=== PATIENT | female | born 1965 | race Caucasian/White ===

== ENCOUNTER 2020-03-04 11:23 | Outpatient (REF) | payer OTHER, SELFPAY ==
[2020-03-04 11:53] LABS: COVID-19 Test Negative (Negative)
== END 2020-03-04 11:24 | disposition home or self-care (01) ==
LOC: HO.LAB 11:23
PROVIDERS: Visit Provider Internal Medicine
DX: Z20.822 Contact with and (suspected) exposure to COVID-19 (principal)
CPT/HCPCS: 36415; 87635; C9803

== ENCOUNTER 2021-01-06 13:23 | Emergency (ER) | payer BC, SELFPAY ==
--- NOTE | 2021-01-06 | ECG_ITS ---
Test Reason : CHEST PAIN Blood Pressure : / mmHG Vent. Rate : 080 BPM Atrial Rate : 080 BPM P-R Int : 132 ms QRS Dur : 084 ms QT Int : 386 ms P-R-T Axes : 014 000 019 degrees QTc Int : 445 ms Normal sinus rhythm T-wave inversion in Anteroseptal leads Poor R wave progression Left axis deviation Abnormal ECG No previous ECGs available Referred By: Generic ED Physician Electronically Signed By:TAMMY RAMOS MD
[2021-01-06 13:28] VITALS: BP 146/97; PULSE 98; RESP 18; TEMP 36.8; O2SAT 99; BMI 28.3
--- NOTE | 2021-01-06 14:45 | ED.CHESTPAIN ---
HPI - Chest Pain General Chief Complaint: Chest Pain Stated Complaint: chest & upper back pain Time Seen by Provider: 01/06/21 14:31 Source: patient and other (Records obtained from [facility]) History of Present Illness HPI narrative: Patient states for the past 4 weeks she has had right-sided chest pain. Over the last few weeks it started radiating to her back. Worse with certain types of movement. No recent illness. No cough or fevers or chills. No nausea. No left-sided or substernal chest discomfort. No dyspnea on exertion. No history of chest pain prior to this No other medical problems such as hypertension or diabetes. She came to the emergency department today at the behest of her coworkers since the pain is not improving. She did have a workup by her PCP which included blood work, EKG, CT scan of the chest without IV contrast. Apparently the workup was negative. She is due for an MRI of the spine to help workup pain from her PCP office but so far it has not happened. Risk factors are high cholesterol. Nonsmoker. family history of early cardiovascular disease Related Data Previous Rx's Medication Instructions Recorded cyclobenzaprine 10 mg tablet 10 mg PO TID #20 tab 01/06/21 ibuprofen 800 mg tablet 800 mg PO TID #30 tab 01/06/21 Allergies Allergy/AdvReac Type Severity Reaction Status Date / Time No Known Allergies Allergy Verified 01/06/21 13:28 Review of Systems Constitutional: Comments: No fevers or chills ENT: Comments: No jaw pain Cardiovascular: Comments: Chest pain is described Respiratory: Comments: No dyspnea or cough. Gastrointestinal: Comments: No nausea vomiting or upper abdominal discomfort Musculoskeletal: Comments: No specific neck or back pain Integumentary/Breasts: Comments: No rash or history of shingles Neurologic: Comments: No weakness numbness or paresthesias PMFSH Past Medical History Medical History (Updated 01/06/21 @ 15:45 by Lucio Valentine MD) Migraines Surgical History (Updated 01/06/21 @ 13:29 by Arielle Corcoran RN) H/O bilateral breast reduction surgery Social History Social History Smoked in Last 30 Days: No Use of substances other than those prescribed or required for medical reasons: No Advance Directives: No Advance Directives Information Provided: Yes Patient : No Physical Exam Vital Signs: Vital Signs: Last Vital Signs Temp 98.2 F 01/06/21 15:15 Pulse 75 01/06/21 15:15 Resp 16 01/06/21 15:15 BP 147/87 H 01/06/21 15:15 Pulse Ox 98 01/06/21 15:15 Body Mass Index 28.3 Const: Other: Awake alert no acute distress Chest: Other: Chest wall nontender. No rash noted an area of discomfort Resp: Other: Clear and equal bilaterally without wheezes rales or rhonchi. Good air entry GI: Other: Soft nontender nondistended with normoactive bowel sounds. No Gold sign Back/Spine/Pelvis: Other: Nontender Skin: Other: No rash Course Course Course Narrative: Musculoskeletal chest wall pain Pulmonary embolism Pneumonia Workup in the emergency department is reassuring. Labs are normal including troponin and D-dimer. Pain is most consistent with a musculoskeletal origin. Stable for discharge home MDM - Chest Pain Lab Data Result diagrams: 01/06/21 14:50 01/06/21 14:49 Labs: Lab Results 01/06/21 01/06/21 01/06/21 Range/Units 14:49 14:50 14:50 WBC 8.8 (4.8-10.8) X10*3/uL RBC 4.12 L (4.20-5.50) X10*6/uL Hgb 13.8 (12.0-16.0) g/dl Hct 40.1 (37.0-47.0) % MCV 97.3 (80.0-98.0) fL MCH 33.5 H (27.0-33.0) pg MCHC 34.4 (31.0-35.0) g/dl RDW 11.9 (11.0-16.0) % Plt Count 169 (160-400) X10*3/uL MPV 10.1 (9.4-12.3) fL Immature Gran % (Auto) 0.6 H (0.0-0.4) % Neut % (Auto) 67.7 (45-73) % Lymph % (Auto) 24.7 (20-40) % Winston % (Auto) 5.4 (2-11) % Eos % (Auto) 1.3 (0-4) % Baso % (Auto) 0.3 (0-2) % Lymph # (Auto) 2.2 (1.2-4.9) X10*3/uL Winston # (Auto) 0.5 (0.1-1.2) X10*3/uL Eos # (Auto) 0.1 (0.0-0.4) X10*3/uL Baso # (Auto) 0.0 (0.0-0.2) X10*3/uL Abs Immat Gran (auto) 0.05 H (0.00-0.03) X10*3/uL Absolute Neuts (auto) 5.9 (2.0-8.3) x10*3/uL Absolute Nucleated RBC 0.000 (0.0-0.012) X10*3/uL Nucleated RBC % (auto) 0.0 (0.0-0.2) /100WBC D-Dimer < 200 NG/ML Sodium 139 (135-145) mmol/L Potassium 3.8 (3.3-5.1) mmol/L Chloride 104 (96-108) mmol/L Carbon Dioxide 28 (22-29) mmol/L Anion Gap 11 L (12-20) BUN 12 (9-16) mg/dL Creatinine 0.89 (0.5-1.4) mg/dL Estim Creat Clear Calc 75.1 Estimated GFR > 60 Random Glucose 100 (60-115) mg/dL Calcium 9.3 (8.4-10.2) mg/dL Total Bilirubin 0.9 (0.0-1.0) mg/dL AST 35 H (5-31) U/L ALT 55 H (0-31) U/L Alkaline Phosphatase 65 (39-117) U/L Troponin I High Sens (<3.5-17.0) ng/L Total Protein 6.9 (6.5-8.0) g/dL Albumin 4.2 (3.5-5.0) g/dL 01/06/21 Range/Units 14:50 WBC (4.8-10.8) X10*3/uL RBC (4.20-5.50) X10*6/uL Hgb (12.0-16.0) g/dl Hct (37.0-47.0) % MCV (80.0-98.0) fL MCH (27.0-33.0) pg MCHC (31.0-35.0) g/dl RDW (11.0-16.0) % Plt Count (160-400) X10*3/uL MPV (9.4-12.3) fL Immature Gran % (Auto) (0.0-0.4) % Neut % (Auto) (45-73) % Lymph % (Auto) (20-40) % Winston % (Auto) (2-11) % Eos % (Auto) (0-4) % Baso % (Auto) (0-2) % Lymph # (Auto) (1.2-4.9) X10*3/uL Winston # (Auto) (0.1-1.2) X10*3/uL Eos # (Auto) (0.0-0.4) X10*3/uL Baso # (Auto) (0.0-0.2) X10*3/uL Abs Immat Gran (auto) (0.00-0.03) X10*3/uL Absolute Neuts (auto) (2.0-8.3) x10*3/uL Absolute Nucleated RBC (0.0-0.012) X10*3/uL Nucleated RBC % (auto) (0.0-0.2) /100WBC D-Dimer NG/ML Sodium (135-145) mmol/L Potassium (3.3-5.1) mmol/L Chloride (96-108) mmol/L Carbon Dioxide (22-29) mmol/L Anion Gap (12-20) BUN (9-16) mg/dL Creatinine (0.5-1.4) mg/dL Estim Creat Clear Calc Estimated GFR Random Glucose (60-115) mg/dL Calcium (8.4-10.2) mg/dL Total Bilirubin (0.0-1.0) mg/dL AST (5-31) U/L ALT (0-31) U/L Alkaline Phosphatase (39-117) U/L Troponin I High Sens < 3.5 (<3.5-17.0) ng/L Total Protein (6.5-8.0) g/dL Albumin (3.5-5.0) g/dL Discharge Plan Discharge Clinical Impression: Chest pain Patient Disposition: Home, Self-Care Instructions: Chest Wall Pain (ED) Additional Instructions: Be sure to follow-up with binder spine and support Prescriptions: New cyclobenzaprine 10 mg tablet 10 mg PO TID Qty: 20 RF: 0 ibuprofen 800 mg tablet 800 mg PO TID Qty: 30 RF: 0 Referrals: AMANDA BENNETT [Physician] - 2 days
[2021-01-06] MEDS: Ketorolac Tromethamine 15 MG/ML VIAL 30 MG IVPUSH (14:55)
[2021-01-06 14:56] LABS: MANUAL DIFF FLAG NO
[2021-01-06 14:59] LABS: Basophils Percent Auto 0.3 % (0-2); Eosinophils Absolute Auto 0.1 X10*3/uL (0.0-0.4); Eosinophils Percent Auto 1.3 % (0-4); Hematocrit 40.1 % (37.0-47.0); Hemoglobin 13.8 g/dl (12.0-16.0); Imm Gran Abs Auto 0.05 X10*3/uL (0.00-0.03); Imm Gran Pct Auto 0.6 % (0.0-0.4); Lymphocytes Absolute Auto 2.2 X10*3/uL (1.2-4.9); Lymphocytes Percent Auto 24.7 % (20-40); Mean Corpuscular HGB Conc 34.4 g/dl (31.0-35.0); Mean Corpuscular Hemoglobin 33.5 pg (27.0-33.0); Mean Corpuscular Volume 97.3 fL (80.0-98.0); Mean Platelet Volume 10.1 fL (9.4-12.3); Monocytes Absolute Auto 0.5 X10*3/uL (0.1-1.2); Monocytes Percent Auto 5.4 % (2-11); Neutrophils Absolute Auto 5.9 x10*3/uL (2.0-8.3); Neutrophils Percent Auto 67.7 % (45-73); Platelet Count 169 X10*3/uL (160-400); Red Blood Count 4.12 X10*6/uL (4.20-5.50); Red Cell Distribution Width 11.9 % (11.0-16.0); White Blood Count 8.8 X10*3/uL (4.8-10.8)
[2021-01-06 15:08] LABS: D Dimer < 200 NG/ML
[2021-01-06 15:15] VITALS: BP 147/87; PULSE 75; RESP 16; TEMP 36.8; O2SAT 98
[2021-01-06 15:17] LABS: Alanine Aminotransferase 55 U/L (0-31); Albumin Level 4.2 g/dL (3.5-5.0); Alkaline Phosphatase 65 U/L (39-117); Anion Gap 11 (12-20); Aspartate Amino Transferase 35 U/L (5-31); Bilirubin Total 0.9 mg/dL (0.0-1.0); Blood Urea Nitrogen 12 mg/dL (9-16); Calcium 9.3 mg/dL (8.4-10.2); Carbon Dioxide 28 mmol/L (22-29); Chloride 104 mmol/L (96-108); Creatinine Clr Calc Pharmacy 75.1; Estimated Glomerular Filt Rate > 60; Glucose Random 100 mg/dL (60-115); Potassium 3.8 mmol/L (3.3-5.1); Sodium 139 mmol/L (135-145); Total Protein 6.9 g/dL (6.5-8.0)
[2021-01-06 15:22] LABS: Troponin-I High Sensitivity < 3.5 ng/L (<3.5-17.0)
== END 2021-01-06 15:55 | disposition home or self-care (01) ==
PROVIDERS: Emergency Provider Emergency Medicine; PCP Internal Medicine
DX: R07.9 Chest pain, unspecified (principal)
CPT/HCPCS: 36415; 80053; 84484; 85025; 85379; 93005; 96374; 99284; 99285; J1885

== ENCOUNTER 2021-12-15 12:00 | Outpatient (RCR) | payer BC, SELFPAY | END 2022-02-03 10:56 | disposition home or self-care (01) | LOC: HO.PT 12:00 | PROVIDERS: PCP Internal Medicine; Visit Provider Midwife | DX: N39.3 Stress incontinence (female) (male) (principal) | CPT/HCPCS: 97110; 97112; 97140; 97162 ==

== ENCOUNTER 2024-05-11 10:23 | Outpatient (REF) | payer BC, SELFPAY ==
[2024-05-11 11:26] LABS: MANUAL DIFF FLAG NO
[2024-05-11 12:03] LABS: Basophils Percent Auto 0.4 % (0-2); Eosinophils Percent Auto 0.6 % (0-4); Hematocrit 40.6 % (37.0-47.0); Hemoglobin 14.1 g/dl (12.0-16.0); Imm Gran Abs Auto 0.02 X10*3/uL (0.00-0.03); Imm Gran Pct Auto 0.4 % (0.0-0.4); Lymphocytes Absolute Auto 1.8 X10*3/uL (1.2-4.9); Lymphocytes Percent Auto 35.4 % (20-40); Mean Corpuscular HGB Conc 34.7 g/dl (31.0-35.0); Mean Corpuscular Volume 95.1 fL (80.0-98.0); Mean Platelet Volume 9.9 fL (9.4-12.3); Monocytes Absolute Auto 0.3 X10*3/uL (0.1-1.2); Monocytes Percent Auto 6.1 % (2-11); Neutrophils Absolute Auto 2.9 x10*3/uL (2.0-8.3); Neutrophils Percent Auto 57.1 % (45-73); Platelet Count 190 X10*3/uL (160-400); Red Blood Count 4.27 X10*6/uL (4.20-5.50); Red Cell Distribution Width 12.2 % (11.0-16.0); White Blood Count 5.1 X10*3/uL (4.8-10.8)
[2024-05-11 12:21] LABS: D Dimer High Sensitivity < 150 NG/ML
[2024-05-11 12:26] LABS: Anion Gap 11 (12-20); Blood Urea Nitrogen 19 mg/dL (9-16); Calcium 9.6 mg/dL (8.4-10.2); Carbon Dioxide 27 mmol/L (22-29); Chloride 107 mmol/L (96-108); Estimated Glomerular Filt Rate > 60; Glucose Random 80 mg/dL (60-115); Sodium 141 mmol/L (135-145)
[2024-05-11 12:55] LABS: Erythrocyte Sedimentation Rate 11 MM/HR (0-20)
[2024-05-12 20:04] LABS: Immunoglobulin E 79 kU/L (<OR=114)
[2024-05-15 11:04] LABS: Anti Nuclear Antibody Screen NEGATIVE (NEGATIVE)
[2024-05-15 13:38] LABS: Cyclic Citrullinated Peptide <16 UNITS
== END 2024-05-11 10:24 | disposition home or self-care (01) ==
LOC: HO.LAB 10:23
PROVIDERS: PCP Internal Medicine; Referring Provider Otolaryngology; Visit Provider Hospitalist
DX: R07.81 Pleurodynia (principal); R06.00 Dyspnea, unspecified; R05.2 Subacute cough; U09.9 Post COVID-19 condition, unspecified
CPT/HCPCS: 36415; 80048; 82785; 85025; 85379; 85652; 86038; 86200

== ENCOUNTER 2024-05-11 10:23 | Outpatient (AMB) | payer BC, SELFPAY ==
[2024-05-11 10:25] VITALS: BP 130/88; PULSE 60; O2SAT 98; BMI 28.8
--- NOTE | 2024-05-11 10:25 | MHC.OFFVIS ---
Vital Signs 05/11/24 10:25 Height 5 ft 5 in Weight 173 lb 1.006 oz BMI 28.8 BP 130/88 Blood Pressure Location Rt brachial Position Sitting Pulse 60 Pulse Source Pulse Oximeter Pulse Oximetry (%) 98 Oxygen Delivery Method Room Air Intake Visit Reasons: Shortness of Breath/Cough Allergies No Known Allergies Allergy (Verified 05/11/24 10:31) HPI Comments Details: The patient is here for pulmonary evaluation. The patient is a 58 year woman presenting with worsening cough and shortness of breath. Apparently she was in her usual state health until back in February when she started developing cough and shortness breath and chest tightness. She did have a COVID test that was positive. However, her symptoms persisted. Continued to have cough. She went to urgent care where she was just provided supportive care. Although her cough persisted moderate severity difficulty sleeping along with some chest heaviness and she went back to the urgent care. Then she had an x-ray. I do not have access to the x-ray but per report she was told that it was okay. She was not provide any medications at that point. The patient then took a trip to [place] where it was hot and humid and she had a hard time with the breathing. She states that she has struggled to breathe. Sometimes she would go into the shower just to try to break up some phlegm and see if he can clear whatever was obstructing her airways. She struggled and she did not want to get care there so she came back to the [facility]. The patient now has been starting to feel better although she does complains of some left-sided back and upper quadrant pain. To some degree is pleuritic in nature. Feels like somebody is punching her in that area. She did see GI for that. She was diagnosed with diverticulosis or diverticulitis. She is going to have a CT scan this Wednesday. In the meantime heart rates have been stable. Denies any history of blood clots. Denies any swelling of her legs. We did go for brief walking oximetry in her oxygen was stable at 98% and heart rate did increase to the low 100s. Therefore will have her undergo blood work including a D-dimer to make sure that she did not have a thromboembolic event and also will check inflammatory marker for anything that could have potentially become activated by the inflammation from the COVID infection. The patient will return to 3 months and undergo pulmonary function studies. 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 Dyspnea Pleuritic chest pain Migraines Surgical History (Updated 01/06/21 @ 13:29 by Arielle Corcoran RN) H/O bilateral breast reduction surgery Social History (Updated 05/11/24 @ 10:31 by Brooklyn Medina CMA) Patient Tobacco Use Status: Never used Tobacco Review of Systems Const Denies fever(s) Eyes Reports no additional complaints ENT Denies nasal congestion Card Reports chest pain and Reports dyspnea on exertion Resp Reports cough, Reports pain on inspiration, Reports dyspnea on exertion and Denies wheezing GI Reports abdominal pain Musc Reports no additional complaints Skin/Breast Denies rash Edison/Lymph Reports no additional complaints Aller/Immun Denies wheezing Physical Exam Vital Signs: Last Vital Signs Pulse 60 05/11/24 10:25 BP 130/88 05/11/24 10:25 Pulse Ox 98 05/11/24 10:25 Oxygen Delivery Method Room Air 05/11/24 10:25 BMI result Body Mass Index 28.8 Const General: comfortable HEENT Head: Yes normocephalic Neck Neck: Yes supple Chest Chest palpation & inspection: tenderness rib (left) Resp Effort & Inspection: normal respiratory effort Auscultation: clear to auscultation bilaterally Cardio Heart sounds: S1 normal heart sound present and S2 normal heart sound present GI Palpation (GI): Soft to palpation Skin General skin exam: no rashes or lesions noted Extrem General: Yes no clubbing, cyanosis or edema Assessment & Plan Assessment & Plan (1) Pleuritic chest pain: Code(s): R07.81 - Pleurodynia Category: Medical (2) Dyspnea: Code(s): R06.00 - Dyspnea, unspecified Category: Medical Qualifiers: Dyspnea type: dyspnea on exertion Qualified Code(s): R06.09 - Other forms of dyspnea (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, unspecified Category: Medical (4) Cough: Code(s): R05.9 - Cough, unspecified Category: Medical Qualifiers: Cough type: subacute Qualified Code(s): R05.2 - Subacute cough Plan Bloodwork PFTs CT ABD/Pelvis at [facility] 05/12 will assess LLL area PFTs F/U 2-3 months Orders: Orders Basic Metabolic Panel Today R06.00 - Dyspnea, unspecified, R07.81 - Pleurodynia Complete Blood Count Auto Diff Today R06.00 - Dyspnea, unspecified, R07.81 - Pleurodynia Erythrocyte Sedimentation Rate Today R06.00 - Dyspnea, unspecified, R07.81 - Pleurodynia D Dimer High Sensitivity Today R06.00 - Dyspnea, unspecified, R07.81 - Pleurodynia [place] Reflex Titer and Pattern Today R06.00 - Dyspnea, unspecified, R07.81 - Pleurodynia Immunoglobulin E Today R06.00 - Dyspnea, unspecified, R07.81 - Pleurodynia Cyclic Citrullinated Peptide Today R07.81 - Pleurodynia PFT pulmonary function test Today R05.2 - Subacute cough Medications: Discontinued cyclobenzaprine Discontinued Reason: Patient Completed Course 10 mg PO TID 20 tabs 0RF ibuprofen Discontinued Reason: Patient Completed Course 800 mg PO TID 30 tabs 0RF Coding Level of Care Code New Pt Level 4 (00622) Diagnoses Pleuritic chest pain R07.81 Dyspnea on exertion R06.09 Dyspnea type: dyspnea on exertion 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
--- OUTSIDE RECORDS SUMMARY | 2024-05-11 11:49 | XMS_ITS | Patient Health Record ---
Author Organization [facility] Address [address] [place] [address] Care Team Providers Care Clerical Supervisor Name Role Phone ADRIENNE SINGLETON Unavailable [phone] ALLERGIES No Known Allergies REASON FOR REFERRAL No Information SOCIAL HISTORY Tobacco Use: Social History Observation Description Date Details (start date - stop date) Never Smoker NA - NA Sex Assigned At : Social History Observation Description Sex Assigned At Unknown Tobacco Use/Smoking Question Answer Notes Are you a nonsmoker Alcohol Screen (Audit-C) Question Answer Notes Did you have a drink contain ing alcohol in the past year? Yes How often did you have a dri nk containing alcohol in the past year? 2 to 4 times a month (2 points) Points 2 Interpretation Negative PROBLEMS Problem Type ICD Code Onset Dates Problem Status W/U Status Risk SNOMED Code Notes Problem Vitamin D deficiency, unspecified (E55.9) Active confirmed 58121247 Problem Functional urinary incontinence (R39.81) Active confirmed 007785112 Problem Dyslipidemia (E78.5) Active confirmed 805760824 VITAL SIGNS Heart Rate 68 /min 04/28/2024 Oximetry 97 % 04/28/2024 Blood pressure diastolic 84 mm Hg 04/28/2024 Height 64 in 04/28/2024 Blood pressure systolic 120 mm Hg 04/28/2024 Weight 170 lbs 04/28/2024 BMI 29.18 kg/m2 04/28/2024 Encounters Encounter Location Date Provider Diagnosis [facility] [address] [address] 04/28/2024 ADRIENNE BORFATMATA Dyslipidemia E78.5 ; Left upper quadrant pain R10.12 ; Functional urinary incontinence R39.81 ; H/O pilonidal cyst Z87.2 ; Coccygeal pain M53.3 ; Uterine leiomyoma, unspecified location D25.9 ; Acute pain of left knee M25.562 and Vitamin D deficiency, unspecified E55.9 [address] [address] 04[facility]27[facility]20[facility] [address] [address] 05/01[facility]20[facility] [address] [place] [address] 05/03/20[facility] Encounter Date Diagnosis Assessment Notes Treatment Notes Treatment Clinical Notes Section Notes 04/28/2024 Left upper quadrant pain (ICD-10 - R10.12) No palpable splenomegaly or CVA tenderness on exam. Left flank pain below ribs, abdominal exam is benign. WIll get US of LUQ, Labs. Has left knee pain, has worsened with recent weight gain. Will get Xrays of LEft knee to assess for OA. Needs fasting labs. Will see Pulm at the end of the month. Follow in 6 weeks for lab results, US results. Of note, some information is being carried forward from prior records for informational purposes only and is being cited so that efficiency, safety and quality of the patient's care is not compromised This note was prepared using voice recognition software and direct typing Please excuse inadvertent sequins slinger or typing errors, or uncorrected word substitutions Although every attempt has been made by the provider to proofread this document, occasional misspellings and typographical errors may still be present Due to the previous pandemic, and the use of personal protective equipment (PPE) This may decrease voice recognition accuracy Inadvertent sequins slinger errors may occur 04/28/2024 Dyslipidemia (ICD-10 - E78.5) No palpable splenomegaly or CVA tenderness on exam. Left flank pain below ribs, abdominal exam is benign. WIll get US of LUQ, Labs. Has left knee pain, has worsened with recent weight gain. Will get Xrays of LEft knee to assess for OA. Needs fasting labs. Will see Pulm at the end of the month. Follow in 6 weeks for lab results, US results. Of note, some information is being carried forward from prior records for informational purposes only and is being cited so that efficiency, safety and quality of the patient's care is not compromised This note was prepared using voice recognition software and direct typing Please excuse inadvertent sequins slinger or typing errors, or uncorrected word substitutions Although every attempt has been made by the provider to proofread this document, occasional misspellings and typographical errors may still be present Due to the previous pandemic, and the use of personal protective equipment (PPE) This may decrease voice recognition accuracy Inadvertent sequins slinger errors may occur 04/28/2024 Functional urinary incontinence (ICD-10 - R39.81) No palpable splenomegaly or CVA tenderness on exam. Left flank pain below ribs, abdominal exam is benign. WIll get US of LUQ, Labs. Has left knee pain, has worsened with recent weight gain. Will get Xrays of LEft knee to assess for OA. Needs fasting labs. Will see Pulm at the end of the month. Follow in 6 weeks for lab results, US results. Of note, some information is being carried forward from prior records for informational purposes only and is being cited so that efficiency, safety and quality of the patient's care is not compromised This note was prepared using voice recognition software and direct typing Please excuse inadvertent sequins slinger or typing errors, or uncorrected word substitutions Although every attempt has been made by the provider to proofread this document, occasional misspellings and typographical errors may still be present Due to the previous pandemic, and the use of personal protective equipment (PPE) This may decrease voice recognition accuracy Inadvertent sequins slinger errors may occur 04/28/2024 H/O pilonidal cyst (ICD-10 - Z87.2) No palpable splenomegaly or CVA tenderness on exam. Left flank pain below ribs, abdominal exam is benign. WIll get US of LUQ, Labs. Has left knee pain, has worsened with recent weight gain. Will get Xrays of LEft knee to assess for OA. Needs fasting labs. Will see Pulm at the end of the month. Follow in 6 weeks for lab results, US results. Of note, some information is being carried forward from prior records for informational purposes only and is being cited so that efficiency, safety and quality of the patient's care is not compromised This note was prepared using voice recognition software and direct typing Please excuse inadvertent sequins slinger or typing errors, or uncorrected word substitutions Although every attempt has been made by the provider to proofread this document, occasional misspellings and typographical errors may still be present Due to the previous pandemic, and the use of personal protective equipment (PPE) This may decrease voice recognition accuracy Inadvertent sequins slinger errors may occur 04/28/2024 Coccygeal pain (ICD-10 - M53.3) No palpable splenomegaly or CVA tenderness on exam. Left flank pain below ribs, abdominal exam is benign. WIll get US of LUQ, Labs. Has left knee pain, has worsened with recent weight gain. Will get Xrays of LEft knee to assess for OA. Needs fasting labs. Will see Pulm at the end of the month. Follow in 6 weeks for lab results, US results. Of note, some information is being carried forward from prior records for informational purposes only and is being cited so that efficiency, safety and quality of the patient's care is not compromised This note was prepared using voice recognition software and direct typing Please excuse inadvertent sequins slinger or typing errors, or uncorrected word substitutions Although every attempt has been made by the provider to proofread this document, occasional misspellings and typographical errors may still be present Due to the previous pandemic, and the use of personal protective equipment (PPE) This may decrease voice recognition accuracy Inadvertent sequins slinger errors may occur 04/28/2024 Uterine leiomyoma, unspecified location (ICD-10 - D25.9) No palpable splenomegaly or CVA tenderness on exam. Left flank pain below ribs, abdominal exam is benign. WIll get US of LUQ, Labs. Has left knee pain, has worsened with recent weight gain. Will get Xrays of LEft knee to assess for OA. Needs fasting labs. Will see Pulm at the end of the month. Follow in 6 weeks for lab results, US results. Of note, some information is being carried forward from prior records for informational purposes only and is being cited so that efficiency, safety and quality of the patient's care is not compromised This note was prepared using voice recognition software and direct typing Please excuse inadvertent sequins slinger or typing errors, or uncorrected word substitutions Although every attempt has been made by the provider to proofread this document, occasional misspellings and typographical errors may still be present Due to the previous pandemic, and the use of personal protective equipment (PPE) This may decrease voice recognition accuracy Inadvertent sequins slinger errors may occur 04/28/2024 Acute pain of left knee (ICD-10 - M25.562) No palpable splenomegaly or CVA tenderness on exam. Left flank pain below ribs, abdominal exam is benign. WIll get US of LUQ, Labs. Has left knee pain, has worsened with recent weight gain. Will get Xrays of LEft knee to assess for OA. Needs fasting labs. Will see Pulm at the end of the month. Follow in 6 weeks for lab results, US results. Of note, some information is being carried forward from prior records for informational purposes only and is being cited so that efficiency, safety and quality of the patient's care is not compromised This note was prepared using voice recognition software and direct typing Please excuse inadvertent sequins slinger or typing errors, or uncorrected word substitutions Although every attempt has been made by the provider to proofread this document, occasional misspellings and typographical errors may still be present Due to the previous pandemic, and the use of personal protective equipment (PPE) This may decrease voice recognition accuracy Inadvertent sequins slinger errors may occur 04/28/2024 Vitamin D deficiency, unspecified (ICD-10 - E55.9) No palpable splenomegaly or CVA tenderness on exam. Left flank pain below ribs, abdominal exam is benign. WIll get US of LUQ, Labs. Has left knee pain, has worsened with recent weight gain. Will get Xrays of LEft knee to assess for OA. Needs fasting labs. Will see Pulm at the end of the month. Follow in 6 weeks for lab results, US results. Of note, some information is being carried forward from prior records for informational purposes only and is being cited so that efficiency, safety and quality of the patient's care is not compromised This note was prepared using voice recognition software and direct typing Please excuse inadvertent sequins slinger or typing errors, or uncorrected word substitutions Although every attempt has been made by the provider to proofread this document, occasional misspellings and typographical errors may still be present Due to the previous pandemic, and the use of personal protective equipment (PPE) This may decrease voice recognition accuracy Inadvertent sequins slinger errors may occur PLAN OF TREATMENT Pending Test Test Name Order Date X ray : Knee, left 2 views 04/28/2024 US Abdomen Complete 04/28/2024 LIPID PANEL, STANDARD 04/28/2024 COMPREHENSIVE METABOLIC PANEL 04/28/2024 CBC (INCLUDES DIFF/PLT) 04/28/2024 URINALYSIS, COMPLETE 04/28/2024 HEMOGLOBIN A1c 04/28/2024 LIPASE 04/28/2024 AMYLASE 04/28/2024 TSH 04/28/2024 Next Appt Details Provider Name:ADRIENNE SINGLETON, 06/02/2024 09:00:00 AM, [address] [facility], [facility] [address], [place], [address], Insurance Providers Payer Name Payer Address Payer Phone Subscriber Number Group Number Insured Name Patient Relationship to Insured Coverage Start Date Coverage End Date [facility] [address] [place] [address] [phone] [id number] Ca Delaney Self - patient is the insured MEDICAL (GENERAL) HISTORY Medical History History ICD Code hypertension hypercholesterolemia Surgical History Surgery Date(Month/Year) breast reduction cyst removal
--- OUTSIDE RECORDS SUMMARY | 2024-05-11 11:49 | XMS_ITS ---
Author Organization [facility] Address [address] [place] [address] Care Team Providers Care Gang Investigator Name Role Phone YANDELBeth ADRIENNE Unavailable [phone] ALLERGIES No Known Allergies REASON FOR VISIT Pt here for new pt visit to establish care for pcp. SOCIAL HISTORY Tobacco Use: Social History Observation [...] W/U Status Risk SNOMED Code Notes Problem Dyslipidemia (E78.5) Active confirmed 294856159 Problem Functional urinary incontinence (R39.81) Active confirmed 896029117 VITAL SIGNS Heart Rate 68 /min 04/28/2024 Blood pressure systolic 120 mm Hg 04/29/19 25 Blood pressure diastolic 84 mm Hg 025 Weight 170 lbs 04/28/2024 BMI 29.18 kg/m2 04/28/2024 Height 64 in 04/28/2024 Oximetry 97 % 04/28/2024 Encounters Encounter Location Date Provider Diagnosis [facility] [address] [address] 04/28/2024 ADRIENNE SINGLETON Dyslipidemia E78.5 ; Left upper quadrant pain R10.12 ; Functional urinary incontinence R39.81 ; H/O pilonidal cyst Z87.2 ; Coccygeal pain M53.3 ; Uterine leiomyoma, unspecified location D25.9 ; Acute pain of left knee M25.562 and Vitamin D deficiency, unspecified E55.9 ASSESSMENTS Encounter Date Diagnosis Assessment Notes Treatment Notes Treatment Clinical Notes Section Notes 04/28/2024 Dyslipidemia (ICD-10 - E78.5) No palpable [...] software and direct typing Please excuse inadvertent adult live in caregiver or typing errors, or uncorrected word substitutions Although every attempt has been made by the provider to proofread this document, occasional misspellings and typographical errors may still be present Due to the previous pandemic, and the use of personal protective equipment (PPE) This may decrease voice recognition accuracy Inadvertent adult live in caregiver errors may occur 04/28/2024 Left upper quadrant pain (ICD-10 - [...] software and direct typing Please excuse inadvertent adult live in caregiver or typing errors, or uncorrected word substitutions Although every attempt has been made by the provider to proofread this document, occasional misspellings and typographical errors may still be present Due to the previous pandemic, and the use of personal protective equipment (PPE) This may decrease voice recognition accuracy Inadvertent adult live in caregiver errors may occur 04/28/2024 Functional urinary incontinence [...] software and direct typing Please excuse inadvertent adult live in caregiver or typing errors, or uncorrected word substitutions Although every attempt has been made by the provider to proofread this document, occasional misspellings and typographical errors may still be present Due to the previous pandemic, and the use of personal protective equipment (PPE) This may decrease voice recognition accuracy Inadvertent adult live in caregiver errors may occur 04/28/2024 H/O pilonidal cyst [...] software and direct typing Please excuse inadvertent adult live in caregiver or typing errors, or uncorrected word substitutions Although every attempt has been made by the provider to proofread this document, occasional misspellings and typographical errors may still be present Due to the previous pandemic, and the use of personal protective equipment (PPE) This may decrease voice recognition accuracy Inadvertent adult live in caregiver errors may occur 04/28/2024 Coccygeal pain (ICD-10 [...] software and direct typing Please excuse inadvertent adult live in caregiver or typing errors, or uncorrected word substitutions Although every attempt has been made by the provider to proofread this document, occasional misspellings and typographical errors may still be present Due to the previous pandemic, and the use of personal protective equipment (PPE) This may decrease voice recognition accuracy Inadvertent adult live in caregiver errors may occur 04/28/2024 Uterine leiomyoma, unspecified [...] software and direct typing Please excuse inadvertent adult live in caregiver or typing errors, or uncorrected word substitutions Although every attempt has been made by the provider to proofread this document, occasional misspellings and typographical errors may still be present Due to the previous pandemic, and the use of personal protective equipment (PPE) This may decrease voice recognition accuracy Inadvertent adult live in caregiver errors may occur 04/28/2024 Acute pain of [...] software and direct typing Please excuse inadvertent adult live in caregiver or typing errors, or uncorrected word substitutions Although every attempt has been made by the provider to proofread this document, occasional misspellings and typographical errors may still be present Due to the previous pandemic, and the use of personal protective equipment (PPE) This may decrease voice recognition accuracy Inadvertent adult live in caregiver errors may occur 04/28/2024 Vitamin D deficiency, [...] software and direct typing Please excuse inadvertent adult live in caregiver or typing errors, or uncorrected word substitutions Although every attempt has been made by the provider to proofread this document, occasional misspellings and typographical errors may still be present Due to the previous pandemic, and the use of personal protective equipment (PPE) This may decrease voice recognition accuracy Inadvertent adult live in caregiver errors may occur PLAN OF TREATMENT Pending Test Test Name Order Date X ray : Knee, left 2 views 04/28/2024 US Abdomen Complete 04/28/2024 LIPID PANEL, STANDARD 04/28/2024 COMPREHENSIVE METABOLIC PANEL 04/28/2024 CBC (INCLUDES DIFF/PLT) 04/28/2024 URINALYSIS, COMPLETE 04/28/2024 HEMOGLOBIN A1c 04/28/2024 LIPASE 04/28/2024 AMYLASE 04/28/2024 TSH 04/28/2024 Next Appt Details Provider Name:ADRIENNE SINGLETON, 06/02/2024 09:00:00 AM, [address], [address], [place], [address], Progress Notes * Dalton DELANEYOB:[birth year] (58 yo F)Acc No.[id number]:04/28/2024 Progress Notes Patient:??Ca DELANEY Provider:??ADRIENNE SINGLETON NP :1965?Age:58 Y?Sex:Fe male Date:04/28/2024 Address:[address] [place] [address] [place], [id number] Subjective: * Chief Complaints: * ?1. Pt here for new pt visit to establish care for pcp.. * HPI: ?Constitutional:? Patient is here today for a new patient visit and to establish care ?Full past medical history, social history, family history, ?allergies and current medications were reviewed and updated. ?New patient packet was reviewed which includes ? PHQ 9 scale for depression screening, social history, family history, ?medical history, surgical history ?They are coming to us from previous practice, [facility] ?Acute Concerns/Problem List: ?Has left flank pain ?Began following COVID infection in February. ?Thought it was related to cough, has not gone away. ?Denies worsening with inspiration. ?Radiates to her back. ?Associated with occasional nausea. ?Says that she has family history of elevated WBCs. ?No history of splenomegaly or malignancy. ?Denies fever, night sweats, unintentional weight loss. ?Also reports left knee pain. ?This has never been a problem before. ?Hurts all the time, not affected by walking. ?Has full ROM. No clunking, catching or swelling. ?No overlying redness or rash. ?No recent trauma. ?Had persistent cough following COVID. ?This was before [place]. ?Cough lingered for about one month, ?CXR: No PNA, no focal consolidation. ?SOB throughout the episode. Made an appointment with Pulm. ?Dr Ralph, has had CXR in the past. ?Symptoms have now resolved but she will keep the appointment with Dr. Ralph. ?Past medical history that includes hyperlipidemia and coccygeal fracture ?Also history of pilonidal cysts status post I&D ?She underwent a pelvic MRI about a year ago which showed some uterine fibroids ?She also underwent colonoscopy, which showed a polyp in the descending colon, Dr. Pollard. ?Referred to colorectal surgery for rectal pain. Dr. Pollard wanted this as a last resort. ?She has not seen colorectal surgery. ?Followed by urogynecology at [facility] for history of mixed urinary incontinence and leakage ?Has gone for germania, discussed mesh surgery. ?Waiting to return to urogyn. Reassessing options, symptoms. Would prefer to avoid surgery. ?She also underwent hysteroscopy in 2022 ?Was on Zepbound in the past, had severe side effects causing discontinuance. ?Had HLD prior to previous weight loss. Has gained remaining weight back following recent trips. ?Social Hx ?Smoke: Never smoker. ?ETOH: Socially, max of 2 per week. ?Drug: No Recreational THC ?, lives with , two kids. ?Menopause: Occasionally getting periods still. ?Sexually Active. ?Health Maintenance: ?COVID MRNA x2 ?Flu 2023 None ?TDAP: Been more than 10 years*. ?Gyno/Pap: Dr. Cali, [facility]. ?Mammography, 07/2023 [facility], [facility] @ benign ?Cscope: In June of 2023, five year repeats due to polyp and father with CRC. ?DXA: None ?Cruz: Discussed, she will go to Pharmacy. * ROS:?All Other Systems:?Review of Systems (ROS)??All others negative except those mentioned in HPI.? * Medical History:??Hypertensi on, Hypercholesterolemia. * Surgical History:??breast re duction , cyst removal . * Family History:??Father: ronnie pickard.??Mother: alive.??1 son(s) , 1 daughter(s) - healthy. .?? mother- auto immune disease. * Social History:?Tobacco Use:??Tobacco Use/Smoking??Are you a??nonsmoker.?Drugs/Alcohol:??Drugs??Have you used drugs other than those for medical reasons in the past 12 months???No.??Alcohol Screen (Audit-C)??Did you have a drink containing alcohol in the past year???Yes,??How often did you have a drink containing alcohol in the past year???2 to 4 times a month (2 points),??Points??2,??Interpretation??Negative.?? * Medications:??None * Allergies:??N.K.D.A. Objective: * Vitals:??HR:68/min, BP:120/8 4mm Hg, Wt:170lbs, BMI:29.18Index, Ht: 64 in, Oxygen sat %:97%. * Examination: ?General Examination: ?GENERAL APPEARANCE:??in no acute distress, well developed, well nourished.??HEAD:??normocephalic, atraumatic.??EYES:??pupils equal, round, reactive to light and accommodation.??EARS:??normal.??ORAL CAVITY:??mucosa moist.??THROAT:??clear.??NECK/THYROID:??neck supple, full range of motion, no cervical lymphadenopathy.??SKIN:??no suspicious lesions, warm and dry.??HEART:??no murmurs, regular rate and rhythm, S1, S2 normal.??LUNGS:??clear to auscultation bilaterally.??ABDOMEN:??normal, bowel sounds present, soft, nontender, nondistended ?, negative Gold's sign, liver nontender, no ascites, no guarding or rigidity, no hepatosplenomegaly, no hernias present, no masses palpable, left upper quadrant tenderness.??EXTREMITIES:??no clubbing, cyanosis, or edema ?Left Knee: Negative Rick, Anterior and posterior drawer. Full sensation over LLE.?No palpable effusion, full ROM at hip, knee and ankle joints..??NEUROLOGIC:??nonfocal, motor strength normal upper and lower extremities, sensory exam intact.? Assessment: * Assessment: 1.??Left upper quadrant pain - R10.12 (Primary)??2.??Dyslipidemia - E78.5??3.??Functional urinary incontinence - R39.81??4.??H/O pilonidal cyst - Z87.2??5.??Coccygeal pain - M53.3??6.??Uterine leiomyoma, unspecified location - D25.9??7.??Acute pain of left knee - M25.562??8.??Vitamin D deficiency, unspecified - E55.9?? No palpable splenomegaly or CVA tenderness on [...] software and direct typing Please excuse inadvertent adult live in caregiver or typing errors, or uncorrected word substitutions Although every attempt has been made by the provider to proofread this document, occasional misspellings and typographical errors may still be present Due to the previous pandemic, and the use of personal protective equipment (PPE) This may decrease voice recognition accuracy Inadvertent adult live in caregiver errors may occur. Plan: * Treatment: 2.??Acute pain of left knee?Imaging: X ray : Knee, left 2 views * Labs:?? * ?Lab: HEMOGLOBIN A1 c ?Lab: URINALYSIS, C OMPLETE ?Lab: COMPREHENSIVE METABOLIC PANEL ?Lab: CBC (INCLUDES DIFF/PLT) ?Lab: TSH ?Lab: LIPID PANEL, STANDARD * Images: Billing Information: * Visit Code:?? [id number] Office Visit, New Pt., Level 4. Modifiers: SA * Procedure Codes:?? * Sign off status: Completed true * Provider:??ADRIENNE SINGLETON NP Date:??08/2024 History and Physical Notes * HPI (History of Present Illness) Category Sub-Category Detail Notes Category Not es Constitutional Patient is here today for a new patient visit and to establish care Full past medical history, social history, family history, allergies and current medications were reviewed and updated. New patient packet was reviewed which includes PHQ 9 scale for depression screening, social history, family history, medical history, surgical history They are coming to us from previous practice, [facility] Acute Concerns/Problem List: Has left flank pain Began following COVID infection in February. Thought it was related to cough, has not gone away. Denies worsening with inspiration. Radiates to her back. Associated with occasional nausea. Says that she has family history of elevated WBCs. No history of splenomegaly or malignancy. Denies fever, night sweats, unintentional weight loss. Also reports left knee pain. This has never been a problem before. Hurts all the time, not affected by walking. Has full ROM. No clunking, catching or swelling. No overlying redness or rash. No recent trauma. Had persistent cough following COVID. This was before . Cough lingered for about one month, CXR: No PNA, no focal consolidation. SOB throughout the episode. Made an appointment with Pulm. Dr Ralph, has had CXR in the past. Symptoms have now resolved but she will keep the appointment with Dr. Ralph. Past medical history that includes hyperlipidemia and coccygeal fracture Also history of pilonidal cysts status post I&D She underwent a pelvic MRI about a year ago which showed some uterine fibroids She also underwent colonoscopy, which showed a polyp in the descending colon, Dr. Pollard. Referred to colorectal surgery for rectal pain. Dr. Pollard wanted this as a last resort. She has not seen colorectal surgery. Followed by urogynecology at [facility] for history of mixed urinary incontinence and leakage Has gone for kekulwinder, discussed mesh surgery. Waiting to return to urogyn. Reassessing options, symptoms. Would prefer to avoid surgery. She also underwent hysteroscopy in 2022 Was on Zepbound in the past, had severe side effects causing discontinuance. Had HLD prior to previous weight loss. Has gained remaining weight back following recent trips. Social Hx Smoke: Never smoker. ETOH: Socially, max of 2 per week. Drug: No Recreational THC , lives with , two kids. Menopause: Occasionally getting periods still. Sexually Active. Health Maintenance: COVID MRNA x2 Flu 2023 None TDAP: Been more than 10 years*. Gyno/Pap: Dr. Cali, [facility]. Mammography, 07/2023 [facility], [facility] @ benign Cscope: In June of 2023, five year repeats due to polyp and father with CRC. DXA: None Shingrix: Discussed, she will go to Pharmacy. Examination Category Sub-Category Detail Notes Category Not es General Examination GENERAL APPEARANCE: in no ac [place] distress, well developed, well nourished HEAD: normocephalic, atrau matic EYES: pupils equal, round, reactive to light and accommodation EARS: normal THROAT: clear NECK/THYROID: neck supple, full ra nge of motion, no cervical lymphadenopathy HEART: no murmurs, regular rate and rhythm, S1, S2 normal LUNGS: clear to auscultatio n bilaterally ABDOMEN: normal, bowel sounds present, soft, nontender, nondistended , negative Gold's sign, liver nontender, no ascites, no guarding or rigidity, no hepatosplenomegaly, no hernias present, no masses palpable, left upper quadrant tenderness NEUROLOGIC: nonfocal, motor stre ngth normal upper and lower extremities, sensory exam intact SKIN: no suspicious lesion s, warm and dry EXTREMITIES: no clubbing, cyanosi s, or edema Left Knee: Negative Rick, Anterior and posterior drawer. Full sensation over LLE. No palpable effusion, full ROM at hip, knee and ankle joints. ORAL CAVITY: mucosa moist
--- OUTSIDE RECORDS SUMMARY | 2024-05-11 11:49 | XMS_ITS | Clinical Summary ---
Author Organization [address] [place] [address] [place] [phone] Phone Care Team Providers Care Restaurant And Bar Manager Name Role Phone Danuta Contreras NP Primary Care Provider [phone] Allergies Active Allergy Reactions Criticality Noted Date Comments Nitrofurantoin Monohyd/M-Cryst Diarrhea 08/03 Penicillins Other 11/26/2021 Medications fluticasone propionate (FLONASE) 50 mcg/actuation nasal spray Administer 2 sprays into each nostril 1 (one) time each day for 14 days. Shake gently. Before first use, prime pump. After use, clean tip and replace cap. 16 g 5 Active Zepbound 2.5 mg/0.5 mL injection Inject 0.5 mL (2.5 mg total) under the skin. 4 Active omeprazole OTC (PriLOSEC OTC) 20 mg EC tabletIndicatio ns:LUQ pain Take 1 tablet (20 mg total) by mouth 1 (one) time each day. Do not crush, chew, or split. 90 tablet 3 5 05/06/19 26 Active Active Problems Problem Noted Date Diagnosed Date Irritable bowel syndrome without diarrhea 2024 Encounters Date Type Department Care Team Description 05/08/2024 Telephone Gastroenterology - [address] [phone] Suni Beebe MA Results 05/05/2024 1:00 PM EDT Office Visit Gastroenterology - [address] [place] [phone] Luis Hare PA LUQ pain (Primary Dx) 04/03/2024 [facility]phone [facility] [address] [place] [phone] Danuta Contreras NP PRIOR AUTH (ZEPBOUND 2.5MG) 03/02/2024 4:33 PM EST - 03/02/2024 11:59 PM EST Hospital Encounter [facility] [address] [address] Acute cough Discharge Disposition: Home or Self Care 03/02/2024 3:45 PM EST Office Visit Walk-In [address] [address] Durga Stanley NP Acute cough (Primary Dx) 02/25/2024 10:15 AM EST Office Visit Walk-In [address] [address] Durga Stanley NP COVID (Primary Dx) 02/24/2024 Telephone Internal Medicine - [address] [phone] Danuta Contreras NP URI from Last 3 Months Surgical History Surgery Date Site/Laterality Comments OTHER SURGICAL HISTORY PROCEDURE: HISTORICAL D&C BREAST REDUCTION PROCEDURE: [place] BREAST REDUCTION OTHER SURGICAL HISTORY 04/2023 PROCEDURE: HISTORY OTHER; COMMENT: I&D ( ? pilonidal) cyst COLONOSCOPY 05/24/2023 - 06/22/2023 distal hp, tics throughout (5yr/fhx) BREAST REDUCTION OTHER SURGICAL HISTORY uterine polypectomy and ablation Medical History Medical History Date Comments Dorsalgia DX:Dorsalgia Vascular headache DX:Vascular he adache Uterine polyp DX:Uterine polyp ; COMMENT: s/p polypectomy Family History Medical History Relation Name Comments Colon polyps Father Diabetes Father Hypertension Father Hypertension Mother Other cancer Mother Thyroid disease Mother Thyroid disease Sister 1 Thyroid disease Sister 2 Relation Name Status Comments Father Mother Sister 1 Sister 2 Alive Social History Tobacco Use Types Packs/Day Years Used Date Smoking Tobacco: Never Smokeless Tobacco: Never Tobacco Cessation:Counseling Given: Not Answered Alcohol Use Standard Drinks/Week Comments Not Currently 0 (1 standard drink = 0.6 oz pur e alcohol) Comments Unknown Sex and Gender Information Value Date Recorded Sex Assigned at Female 05/08/2024 8:43 AM EDT Legal Sex Female 5:49 AM EST Gender Identity Female 05/08/2024 8:43 AM EDT Sexual Orientation Straight 05/08/2024 8: 43 AM EDT Obstetrics History Last Filed Vital Signs Vital Sign Reading Time Taken Comments Blood Pressure 140/82 03/02/2024 4:23 PM EST Pulse 80 03/02/2024 4:23 PM EST Temperature 36.6 ??C (97.8 ??F) 03/02/2024 4:23 PM ES T Respiratory Rate - - Oxygen Saturation 98% 03/02/2024 4:23 PM EST Inhaled Oxygen Concentration - - Weight 77.1 kg (170 lb) 05/05/2024 12:53 PM EDT Height 162.6 cm (5' 4 ) 05/05/2024 12:53 PM EDT Body Mass Index 29.18 05/05/2024 12:53 PM EDT Plan of Treatment Upcoming Encounters Date Type Department Care Team (Late st Contact Info) Description 05/19/2024 8:[address] [facility] Scan [address] [place] [phone] 07/05/2024 9:10 AM EDT Office Visit Gastroenterology - [address] [phone] Luis Hare PA [address] [address] Health Maintenance Due Date Last Done Comments DTaP,Tdap,and Td Vaccines (1 - Tdap) 08/24/1986 Hepatitis B Vaccines (1 of 3 - 19+ 3-dose series) 08/24/1986 Cervical Cancer Screening: P ap Smear 08/24/1988 Pneumococcal Vaccine: 50+ Years (1 of 1 - PCV) 08/24/2017 Zoster Vaccines (1 of 2) 08/24/2017 Breast Cancer Screening 04/05/2021 04/05/2019 Cholesterol Screening (Lipid Panel) 01/25/2022 Colorectal Cancer Screening: Colonoscopy 01/25/2022 05/26/2023, 11/23/2017 Depression Screening 01/25/2022 HIV Screening 01/25/2022 Hepatitis C Screening 01/25/2022 Social Influencers of Health Screening 01/25/2022 COVID-19 Vaccine (2023-2 5 season) 2023 Influenza Vaccine (#1) 2023 HIB Vaccines Aged Out No longer eligi ble based on patient's age to complete this topic HPV Vaccines Aged Out No longer eligi ble based on patient's age to complete this topic Hepatitis A Vaccines Aged Out No long er eligible based on patient's age to complete this topic IPV Vaccines Aged Out No longer eligi ble based on patient's age to complete this topic MMR Vaccines Aged Out No longer eligi ble based on patient's age to complete this topic Meningococcal ACWY Vaccine Aged Out N o longer eligible based on patient's age to complete this topic Meningococcal B Vacine Aged Out No lo nger eligible based on patient's age to complete this topic Pneumococcal Vaccine: Pediatrics (0 to 5 Years) and At-Risk Patients (6 to 64 Years) Aged Out No longer eligible b ased on patient's age to complete this topic RSV Immunization Patients Under 20 months Aged Out No longer eligible b ased on patient's age to complete this topic Varicella Vaccines Aged Out No longer eligible based on patient's age to complete this topic Procedures Procedure Name Priority Date/Time Associated Diagnosis Comments AMYLASE Routine 05/05/2024 1:59 PM EDT LUQ pain LIPASE Routine 05/05/2024 1:59 PM EDT LUQ pain XR CHEST 2 VIEWS STAT 03/02/2024 4:40 PM EST Acute cough POC RAPID [id number], MOLECULAR Routine 02/25/2024 10:40 AM EST COVID EXTERNAL COLONOSCOPY REPORT Routine 05/26/2023 11:01 AM EDT JARRED SCREENING DIGITAL Routine 04/05/2019 9:25 AM EST Encounter for screening mammogram for malignant neoplasm of breast from Last 3 Months or Most Recently Relevant to Health Maintenance Results * Lipase (05/05/2024 1:59 PM EDT) Lipase 27 13 - 75 unit/L LAB CHEMISTRY METHOD 05/05/2024 5:40 PM EDT [facility] Blood Venous blood specimen / Unknown Venipuncture / Unknown 05/05/2024 1:59 PM EDT 05/05/2024 4:39 PM EDT CadyGabriel DEGROTO LAB BLOOD ORDERABLES Final R esult Performing Organization Address City/[facility]/ZIP Co de Phone Number [facility] [address] [place] [address], [place] [phone] * Amylase (05/05/2024 1:59 PM EDT) Amylase 38 25 - 115 unit/L LAB CHEMISTRY METHOD 05/05/2024 5:40 PM EDT [facility] Blood Venous blood specimen / Unknown Venipuncture / Unknown 05/05/2024 1:59 PM EDT 05/05/2024 4:39 PM EDT CadyGabriel DEGROOT LAB BLOOD ORDERABLES Final R esult Performing Organization Address City/[facility]/ZIP Co de Phone Number [facility] [address] [place] [address], [place] [phone] * XR Chest 2 Views (03/02/2024 4:40 PM EST) Anatomical Region Laterality Modality Body Radiographic Marah ging 03/02/2024 6:31 PM EST Impressions 03/02/2024 6:35 PM EST No evidence of an acute chest process. POS - [id number] -------- FINAL REPORT -------- Dictated By: Lauren Green Dictated Date: 03/02/2024 18:31 ET Assigned Physician: Lauren Green Reviewed and Electronically Signed By: Lauren Green Signed Date: 03/02/2024 18:35 ET Workstation ID: [id number] Transcribed By: Self Edit Transcribed Date: 03/02/2024 18:31 ET Narrative 03/02/2024 6:35 PM EST EXAM: Chest x-ray HISTORY: ??Cough. ??Shortness of breath. ??Recent diagnosis of Covid 19 infection. COMPARISON: 12/18/2020 FINDINGS: PA and lateral views of the chest were performed. ?? No focal infiltrate, pleural effusion, or evidence of pulmonary edema. Heart is not enlarged. ??Mediastinal contours are stable. No compression deformities. Procedure Note Lauren Green MD - 03/02/2024 EXAM: Chest x-ray HISTORY: Cough. Shortness of breath. Recent diagnosis of Covid 19infection. COMPARISON: 12/18/2020 FINDINGS: PA and lateral views of the chest were performed. No focal infiltrate, pleural effusion, or evidence of pulmonary edema.Heart is not enlarged. Mediastinal contours are stable. No compressiondeformities. IMPRESSION: No evidence of an acute chest process. POS - [id number] -------- FINAL REPORT -------- Dictated By: Lauren Green Dictated Date: 03/02/2024 18:31 ET Assigned Physician: Lauren Green Reviewed and Electronically Signed By: Lauren Green Signed Date: 03/02/2024 18:35 ET Workstation ID: [id number] Transcribed By: Self Edit Transcribed Date: 03/02/2024 18:31 ET Durga Stanley NP IMG XR PROCEDURES Final Resul t * (ABNORMAL) Poc Rapid [id number], MOLECULAR (02/25/2024 10:40 AM EST) COVID-19/SARS- COV-2 Rapid POC Positive(A ) Negative Swab Nasopharyngeal structure / Unknown 02/25/2024 10:40 AM EST us Durga Stanley NP POINT OF CARE TEST ENTER/EDIT ORDERABLES Edited Result - Final * External Colonoscopy Report (05/26/2023 11:01 AM EDT) Anatomical Region Laterality Modality Endoscopy us Historical Provider MD GAMBLE~PROCEDURE ORDERABLES F inal Result * JARRED SCREENING DIGITAL (04/05/2019 9:25 AM EST) Anatomical Region Laterality Modality Mammography 04/05/2019 8:41 AM EST Narrative 04/05/2019 9:[address] [facility] Diagnostic Imaging Department [address] [place] [address] Patient: ??CA DELANEY ?/Age/Sex: 1965 - 53 - F Unit#: ??[id number] ? Location/Status: ??SPDIMAM/REG CLI ? Mnemonic/Ordering Site: ??DIGSC/SPMAM Ordering Physician: ??MAZIN BULLOCK MD Jarred Screening Digital - 04/05/19857 History: Bilateral breast cancer screening. Technique: Digital mammography. Conventional CC and MLO projections with tomosynthesis MLO views and computer aided detection. Comparison: [facility] and outside mammography 01/04/2018, dating back to 11/17/2007. Findings: ??Breast tissue consists of a combination of fatty and fibroglandular elements (category b density) (as calculated by Envervpara software). There are benign calcifications bilaterally. ??No suspicious group of calcification, architectural distortion, suspicious mass or suspicious asymmetry. Impression: ??No evidence of malignancy. BIRADS Category 2, benign findings, 3342F 67699, [address] Note: Patient information entered into a reminder system with a target due date for the next mammogram: ??CPT II 7025F Dictating Physician: ??HARIS BUCHANAN MD Electronically Signed by: ??HARIS BUCHANAN MD Dic Date/Time: ??04/05/19923 Sign date/Time: ??04/05/19924 Procedure Note Haris Buchanan - 02/11/2022 [facility] Diagnostic Imaging Department [address] [place] [address] Patient: CA DELANEY D.O.B./Age/Sex: 1965 - 53 - F Unit#: [id number] Location/Status: [facility] Mnemonic/Ordering Site: [facility] Ordering Physician: MAZIN BULLOCK MD Jarred Screening Digital - 04/05/19857 History: Bilateral breast cancer screening. Technique: Digital mammography. Conventional CC and MLO projections with tomosynthesis MLO views and computer aided detection. Comparison: [facility] and outside mammography 01/04/2018,dating back to 11/17/2007. Findings: Breast tissue consists of a combination of fatty andfibroglandular elements (category b density) (as calculated by Envervpara software).There are benign calcifications bilaterally. No suspicious group ofcalcification, architectural distortion, suspicious mass or suspicious asymmetry. Impression: No evidence of malignancy. BIRADS Category 2, benign findings, 3342F 81792, [address] Note: Patient information entered into a reminder system with a target duedate for the next mammogram: CPT II 7025F Dictating Physician: HARIS BUCHANAN MD Electronically Signed by: HARIS BUCHANAN MD Dic Date/Time: 04/05/19923 Sign date/Time: 04/05/19924 Mazin Bullock MD IMG BI PROCEDURES Final Resu lt from Last 3 Months or Most Recently Relevant to Health Maintenance [address] [place] [phone] [facility] ([facility]) Care Teams Restaurant And Bar Manager Relationship Specialty Start Date End Date Danuta Contreras NP [facility] [address] PCP - General 07/17/22
--- OUTSIDE RECORDS SUMMARY | 2024-05-11 11:49 | XMS_ITS ---
Author Organization [facility] Address [address] [place] [address] Care Team Providers Care Splitting Machine Feeder Name Role Phone ADRIENNE SINGLETON Unavailable [phone] REASON FOR VISIT abdominal US results Encounters Encounter Location Date Provider Diagnosis [address] [facility] [address] [place] [address] 05/01/2024 ADRIENNE SINGLETON PLAN OF TREATMENT Next Appt Details Provider Name:ADRIENNE SINGLETON, 06/02/2024 09:00:00 AM, [address], [address], [place], [address], Progress Notes * Dalton CAPUTOOB:[birth year] (58 yo F)Acc No.[id number]:05/01/2024 Patient:??HARSHALCa :1965?Age:58 Y?Sex:Fe male Address:[address] [place] [address] * true * Date:??
--- OUTSIDE RECORDS SUMMARY | 2024-05-11 11:50 | XMS_ITS | Encounter Summary ---
Author Organization [facility] Address [address] [place] [address] Care Team Providers Care Special Needs Librarian Name Role Phone Danuta Contreras NP Primary Care Provider Reason for Visit * Reason Onset Date Comments PRIOR AUTH 04/03/2024 ZEPBOUND 2.5MG Encounter Details Date Type Department Care Team (Late st Contact Info) Description 04/03/2024 Telephone Internal Medicine - [facility] [address] [place], [place] [phone] Danuta Contreras NP [address] [place] [address] PRIOR AUTH (ZEPBOUND 2.5MG) Social History Tobacco Use Types Packs/Day Years Used Date Smoking Tobacco: Never Smokeless Tobacco: Never Alcohol Use Standard Drinks/Week Comments Not Currently 0 (1 standard drink = 0.6 oz pur e alcohol) Comments Unknown Sex and Gender Information Value Date Recorded Sex Assigned at Female 05/08/2024 8:43 AM EDT Legal Sex Female 5:49 AM EST Gender Identity Female 05/08/2024 8:43 AM EDT Sexual Orientation Straight 05/08/2024 8: 43 AM EDT documented as of this encounter Progress Notes * Danuta Hooper - 05/05/2024 8:40 AM EDT Received fax about zepbound PA needing more information - looking at messages below she's seeing weight management. * Iqra Fleming MA - 04/24/2024 2:39 PM EST Pt states she does not need Zepbound at this time she has been seeing Weight management. * Danuta Contreras NP - 04/23/2024 12:44 PM EST Please notify the patient her insurance requires an office visit for proper documentation of weightand vitals in order to cover zepbound * Polly Nieto MA - 04/19/2024 11:46 AM ESTAddended by: POLLY NIETO on: 04/19/2024 11:46 AM Modules accepted: Orders * Polly Nieto MA - 04/19/2024 11:38 AM EST Unable to complete this prior authorization for the zepbound. Pt does not have a recent weight and bmi. Within the last 90 days. Can do a nurse visit, but I needthe documentation to be able to complete this. Thank you [facility] [place] Polly Go [facility] Prior Authorization Ext [phone] * Danuta Hooper - 04/03/2024 12:21 PM EST Prior Authorization for Medication-do not complete and send this encounter unless you have the fax from the pharmacy. Is this a Cover My Meds request: Yes -- [place]nes Code [id number] Name of Medication Zepbound 2.5mg Dose of Medication 2.5mg / 0.5ml auto injector What is the RX # from the faxed refill? How does patient take this med? What Pharmacy did the fax come from: Pharmacy fax #: [facility] Information from fax: What Prescription Plan does the patient have? BIN/PCN if applicable: Cardholder ID: Person Code: Relationship Code: Help desk phone: documented in this encounter Plan of Treatment Upcoming Encounters Date Type Department Care Team (Late st Contact Info) Description 05/19/2024 8:00 AM EDT Appointment [facility] CT Scan [address] [place] [phone] 07/05/2024 9:10 AM EDT Office Visit Gastroenterology - 299 [facility] [address] [phone] Luis Hare PA [address] [address] documented as of this encounter Visit Diagnoses Not on filedocumented in this encounter Historical Medications * This list may reflect changes made after this encounter. Zepbound 2.5 mg/0.5 mL injection Inject 0.5 mL (2.5 mg total) under the skin. 08/04/2023 added in this encounter Care Teams Special Needs Librarian Relationship Specialty Start Date End Date Danuta Contreras NP [address] [place] [address] PCP - General 07/17/22 documented as of this encounter
--- OUTSIDE RECORDS SUMMARY | 2024-05-11 11:50 | XMS_ITS ---
Author Organization [facility] Address [address] [place] [address] Care Team Providers Care Tax Manager Cpa Name Role Phone ADRIENNE SINGLETON Unavailable [phone] Encounters Encounter Location Date Provider Diagnosis [facility] [address] [place] [address] 05/03/2024 ADRIENNE SINGLETON PLAN OF TREATMENT Next Appt Details Provider Name:ADRIENNE SINGLETON, 06/02/2024 09:00:00 AM, [address] [place] [address] [address], [place], [address], Progress Notes * Dalton CAPUTOOB:[birth year] (58 yo F)Acc No.[id number]:05/03/2024 Patient:??HARSHALCa :1965?Age:58 Y?Sex:Fe male Address:[address] [place] [address] [place] [address] * true * Date:??
--- OUTSIDE RECORDS SUMMARY | 2024-05-11 11:50 | XMS_ITS | Encounter Summary ---
Author Organization [facility] [address] [place] [address] Care Team Providers Care Forest Pathology Associate Professor Name Role Phone Danuta Contreras NP Primary Care Provider [phone] Reason for Visit * Reason Onset Date Comments Results 05/08/2024 Encounter Details Date Type Department Care Team (Late st Contact Info) Description 05/08/2024 Telephone Gastroenterology - [address] [place] [address] Suni Beebe MA Results Social History Tobacco Use Types Packs/Day Years [...] as of this encounter Progress Notes * Suni Beebe MA - 05/08/2024 8:32 AM EDT LET PT KNOW THAT PANCREATIC LABS WERE ALL NORMAL. * Suni Beebe MA - 05/08/2024 8:30 AM EDT ----- Message from MIKAYLA Romo sent at 05/05/2024 6:19 PM EDT ----- Please let pt know pancreas labs are normal. TY. documented in this encounter Plan of Treatment Upcoming Encounters Date Type Department Care Team (Late st Contact Info) Description 05/19/2024 8:00 AM EDT Appointment [facility] CT Scan [address] [place] [phone] 07/05/2024 9:10 AM EDT Office Visit Gastroenterology - [address] [phone] Luis Hare PA [address] [address] documented as of this encounter Visit Diagnoses Not on filedocumented in this encounter Care Teams Forest Pathology Associate Professor Relationship Specialty Start Date End Date Danuta Contreras NP [address] [place] [address] PCP - General 07/17/22 documented as of this encounter
--- OUTSIDE RECORDS SUMMARY | 2024-05-11 11:50 | XMS_ITS | Encounter Summary ---
Author Organization [facility] Address [address] [place] [address] Care Team Providers Care Silver Steward Name Role Phone Danuta Contreras NP Primary Care Provider [phone] Reason for Referral * Imaging (Routine) - Pending Review Specialty Diagnoses / Procedures Referred By Contalan t Referred To Contact Radiology Diagnoses LUQ pain Procedures CT Abdomen Pelvis w Contrast Luis Hare PA [address] [address] Phone: tel: fax: [address] [address] Phone: tel: Referral ID Status Reason Start Date Expiration Date V isits Requested Visits Authorized [id number] Pending Review 05/05/2024 05/05/2025 1 1 Reason for Visit * Reason Comments Abdominal Pain Llq radiates to back Nausea Encounter Details Date Type Department Care Team (Late st Contact Info) Description 05/05/2024 1:00 PM EDT Office Visit Gastroenterology - 299 [place] [address] [phone] Luis Hare PA [address] [address] LUQ pain (Primary Dx) Social History Tobacco Use Types Packs/Day Years [...] AM EDT documented as of this encounter Last Filed Vital Signs Vital Sign Reading Time Taken Comments Blood Pressure - - Pulse - - Temperature - - Respiratory Rate - - Oxygen Saturation - - Inhaled Oxygen Concentration - - Weight 77.1 kg (170 lb) 05/05/2024 12:53 PM EDT Height 162.6 cm (5' 4 ) 05/05/2024 12:53 PM EDT Body Mass Index 29.18 05/05/2024 12:53 PM EDT documented in this encounter Ordered Prescriptions Prescription Sig Dispense Quantity Refills Last Filled Start Date End Date omeprazole OTC (PriLOSEC OTC) 20 mg EC tabletIndications: LUQ pain Take 1 tablet (20 mg total) by mouth 1 (one) time each day. Do not crush, chew, or split. 90 tablet 3 05/05/2024 05/05/2025 documented in this encounter Progress Notes * MIKAYLA Zuniga - 05/05/2024 1:00 PM EDT Subjective Last Colononscopy/EGD: Colon 05/2023 -distal HP polyp, tics throughout (5yr/fhx) HPI: Ca Delaney is a 58 y.o. old female who presents to the gastroenterology department today for left upper quadrant pain. The left upper quadrant pain has been going on since the beginning of the year. She had COVID and a significant cough at that time. The left upper quadrant pain startedaround the same time. The cough eventually resolved. The left upper quadrant pain is fairly constant. It radiates to the back at times. It is getting worse. She now has nausea associated with it. Eating or bowel movements do not the pain any better or worse. Her bowel movements are regular without melena and hematochezia. She denied vomiting, heartburn, NSAID use. She had lost some weight throughWegovy and Zepbound. She did not like them at all and was only on them briefly in the fall. She hasregained some weight. I saw her last year for persistent rectal pain and burning. She had a thorough workup for that including a colonoscopy and a pelvic MRI. They were unremarkable. That eventually r esolved. She does have diverticulosis throughout her whole colon. She reports having an overall unremarkable abdominal ultrasound recently. Review of Systems Constitutional: Negative. Respiratory: Negative. Cardiovascular: Negative. Gastrointestinal: Positive for abdominal pain (LUQ). Genitourinary: Negative. PROBLEM LIST: Patient Active Problem List Diagnosis Irritable bowel syndrome without diarrhea PAST MEDICAL HISTORY: Past Medical History: Diagnosis Date Dorsalgia DX:Dorsalgia Uterine polyp DX:Uterine polyp; COMMENT: s/p polypectomy Vascular headache DX:Vascular headache PAST SURGICAL HISTORY: Past Surgical History: Procedure Laterality Date BREAST REDUCTION PROCEDURE: [place] BREAST REDUCTION COLONOSCOPY 05/2023 distal hp, tics throughout (5yr/fhx) OTHER SURGICAL HISTORY PROCEDURE: HISTORICAL D&C OTHER SURGICAL HISTORY 04/2023 PROCEDURE: HISTORY OTHER; COMMENT: I&D ( ? pilonidal) cyst SOCIAL HISTORY: Social History Tobacco Use Smoking status: Never Smokeless tobacco: Never Substance Use Topics Alcohol use: Not Currently FAMILY HISTORY: Family History Problem Relation Name Age of Onset Hypertension Mother Other cancer Mother Thyroid disease Mother Hypertension Father Diabetes Father Colon polyps Father Thyroid disease Sister Thyroid disease Sister ACTIVE MEDICATIONS: Current Outpatient Medications Medication Sig Dispense Refill fluticasone propionate (FLONASE) 50 mcg/actuation nasal spray Administer 2 sprays into each nostril1 (one) time each day for 14 days. Shake gently. Before first use, prime pump. After use, clean tipand replace cap. 16 g 0 omeprazole OTC (PriLOSEC OTC) 20 mg EC tablet Take 1 tablet (20 mg total) by mouth 1 (one) time each day. Do not crush, chew, or split. 90 tablet 3 Zepbound 2.5 mg/0.5 mL injection Inject 0.5 mL (2.5 mg total) under the skin. (Patient not taking: Reported on 05/05/2024) No current facility-administered medications for this visit. ALLERGIES: Allergies Allergen Reactions Nitrofurantoin Monohyd/M-Cryst Diarrhea Penicillins Other Wt Readings from Last 1 Encounters: 05/05/24 1253 77.1 kg (170 lb) Physical Exam Constitutional: Appearance: Normal appearance. HENT: Head: Normocephalic. Cardiovascular: Rate and Rhythm: Normal rate and regular rhythm. Pulmonary: Effort: Pulmonary effort is normal. Breath sounds: Normal breath sounds. Abdominal: General: Bowel sounds are normal. There is no distension. Palpations: Abdomen is soft. There is no mass. Tenderness: There is no abdominal tenderness. There is no guarding or rebound. Skin: General: Skin is warm. Neurological: Mental Status: She is alert and oriented to person, place, and time. Psychiatric: Mood and Affect: Mood normal. Behavior: Behavior normal. IMPRESSION: 1. LUQ pain Assessment/Plan Assessment & Plan LUQ pain Amylase and lipase ordered to rule out pancreatic abnormality Patient has diverticulosis throughout the colon and abdominal pelvic CT ordered to rule out diverticulitis or other abnormality such as pancreatic etiology, hernia etc. Orders: Amylase; Future Lipase; Future CT Abdomen Pelvis w Contrast; Future omeprazole OTC (PriLOSEC OTC) 20 mg EC tablet; Take 1 tablet (20 mg total) by mouth 1 (one) time each day. Do not crush, chew, or split. Follow up in about 8 weeks (around 06/30/2024). MIKAYLA Zuniga 5:52 PM EDT documented in this encounter Plan of Treatment Upcoming Encounters Date Type Department Care Team (Late st Contact Info) Description 05/19/2024 8:00 AM EDT Appointment [facility] CT Scan [address] [place] [phone] 07/05/2024 9:10 AM EDT Office Visit Gastroenterology - 299 [place] 299 [facility] [address] [place] [phone] Luis Hare PA [address] [address] Scheduled Orders Name Type Priority Associated Diagnoses Orde r Schedule CT Abdomen Pelvis w Contrast Imaging Routine LUQ pain Expected: 05/05/2024, Expires: 05/05/2025 documented as of this encounter Results * Lipase (05/05/2024 1:59 PM EDT) Lipase 27 13 - 75 unit/L LAB CHEMISTRY METHOD 05/05/2024 5:40 PM EDT [facility] Blood Venous blood specimen / Unknown Venipuncture / Unknown 05/05/2024 1:59 PM EDT 05/05/2024 4:39 PM EDT CadyGabriel DEGROOT LAB BLOOD ORDERABLES Final R esult Performing Organization Address City/[facility]/ZIP Co de Phone Number [facility] [address] [place] [address], [place] [phone] * Amylase (05/05/2024 1:59 PM EDT) Amylase 38 25 - 115 unit/L LAB CHEMISTRY METHOD 05/05/2024 5:40 PM EDT [facility] Blood Venous blood specimen / Unknown Venipuncture / Unknown 05/05/2024 1:59 PM EDT 05/05/2024 4:39 PM EDT Luis DEGROOT LAB BLOOD ORDERABLES Final R esult Performing Organization Address City/[facility]/ZIP Co de Phone Number [facility] [address] [place] [address], [place] [phone] documented in this encounter Visit Diagnoses Diagnosis LUQ pain- Primary Abdominal pain, left upper quadrant documented in this encounter Care Teams Silver Steward Relationship Specialty Start Date End Date Danuta Contreras NP [address] [place] [address] PCP - General 07/17/22 documented as of this encounter
== END 2024-05-11 11:00 | disposition home or self-care (01) ==
PROVIDERS: PCP Internal Medicine; Referring Provider Otolaryngology; Visit Provider Hospitalist
DX: R07.81 Pleurodynia (principal); R06.09 Other forms of dyspnea; U09.9 Post COVID-19 condition, unspecified; R05.2 Subacute cough
CPT/HCPCS: 99204

== ENCOUNTER 2024-05-30 08:07 | Outpatient (REF) | payer BC, SELFPAY ==
--- OUTSIDE RECORDS SUMMARY | 2024-05-30 08:20 | XMS_ITS | Encounter Summary ---
Author Organization [facility] Address [address] [place] [address] Phone Care Team Providers Care Advertising Editor Name Role Phone Jose Kwan MD Primary Care Provid er Valente Cole MD Unavailable [phone] Encounter Details Date Type Department Care Team (Late st Contact Info) Description 11/04/2021 Procedure [facility] [address] [place] [id number] Social History Tobacco Use Types Packs/Day Years Used Date Smoking Tobacco: Never Smokeless Tobacco: Never Alcohol Use Standard Drinks/Week Comments Yes 0 (1 standard drink = 0.6 oz pur e alcohol) social Sex and Gender Information Value Date Recorded Sex Assigned at Female 01/22/2021 10:54 AM EST Gender Identity Female 01/22/2021 10:54 AM EST Sexual Orientation Straight 01/22/2021 10 :54 AM EST documented as of this encounter Plan of Treatment Not on file documented as of this encounter Visit Diagnoses Not on filedocumented in this encounter Care Teams Advertising Editor Relationship Specialty Start Date End Date Jose Kwan MD [address] [place] [address] PCP - General Internal Medicine 01/22/21 Valente Cole MD [address] [place] [address] General Surgery 11/20/21 documented as of this encounter Additional Source Comments The information contained in this document represents components of the legal health record. It is not the complete legal health record.[facility]
--- OUTSIDE RECORDS SUMMARY | 2024-05-30 08:20 | XMS_ITS ---
Author Organization [facility] Address [address] [place] [address] Care Team Providers Care Cut Out Worker Name Role Phone MANI ADRIENNE Unavailable [phone] REASON FOR VISIT lab question Encounters Encounter Location Date Provider Diagnosis [facility] [address] 299 [facility] [address] [place] [address] 05/29/2024 ADRIENNE SINGLETON PLAN OF TREATMENT Next Appt Details Provider Name:ADRIENNE SINGLETON, 06/02/2024 09:00:00 AM, 299 [facility], [facility], [place], [address], Progress Notes * Dalton CAPUTOOB:[birth year] (58 yo F)Acc No.[id number]:05/29/2024 Patient:??HARSHALCa :1965?Age:58 Y?Sex:Fe male Address:[address] [place] [address] [place] [address] * * Date:??
--- OUTSIDE RECORDS SUMMARY | 2024-05-30 08:20 | XMS_ITS | Clinical Summary ---
Author Organization [address] [place] [address] [place] [phone] Phone Care Team Providers Care Chief Drafter Name Role Phone Danuta Contreras NP Primary Care Provider [phone] Allergies Active Allergy Reactions Criticality Noted Date [...] Encounters Date Type Department Care Team Description 05/26/2024 Telephone Gastroenterology - 299 [place] [address] [phone] Maxine Graham MA 05/24/2024 Telephone Gastroenterology - 299 [place] [address] [phone] Nelli Rizvi NP 05/23/2024 Telephone Gastroenterology - [address] [phone] Neal Robison MD 05/19/2024 8:00 AM EDT - 05/19/2024 11:59 PM EDT Hospital Encounter [facility] CT Scan [address] [place] [phone] LUQ pain Discharge Disposition: Home or Self Care 05/18/2024 Telephone Gastroenterology - [address] [phone] Luis Hare PA 05/08/2024 Telephone Gastroenterology - [address] [place] [phone] Suni Beebe [place] Results 05/05/2024 1:00 PM EDT Office Visit Gastroenterology - [address] [phone] Luis Hare PA LUQ pain (Primary Dx) 04/03/2024 Telephone Internal Medicine - [address] [place] [phone] Danuta Contreras NP PRIOR AUTH (ZEPBOUND 2.5MG) 03/02/2024 4:33 PM EST - 03/02/2024 11:59 PM EST Hospital Encounter [facility] [place] [address] [place] [phone] Acute cough Discharge Disposition: Home or Self Care 03/02/2024 3:45 PM EST Office Visit [facility] [place] [address] [place] [phone] Durga Stanley NP Acute cough (Primary Dx) from Last 3 Months Surgical History Surgery Date Site/Laterality Comments OTHER SURGICAL HISTORY PROCEDURE: HISTORICAL D&C BREAST REDUCTION PROCEDURE: [place] BREAST REDUCTION OTHER SURGICAL HISTORY 04/2023 PROCEDURE: [...] Care Team (Late st Contact Info) Description 07/05/2024 9:10 AM EDT Office Visit Gastroenterology - 299 [place] 299 [facility] [address] [place] [phone] Luis Hare PA 299 [facility] [address] [place] [address] Health Maintenance Due Date Last Done Comments DTaP,Tdap,and Td Vaccines (1 - Tdap) 08/24/1986 Hepatitis B Vaccines (1 of 3 - 19+ 3-dose series) 08/24/1986 Pneumococcal Vaccine: 50+ Years (1 of 2 - PCV) 08/24/1986 Pneumococcal Vaccine: Pediatrics (0 to 5 Years) and At-Risk Patients (6 to 64 Years) (1 of 2 - PCV) 08/24/1986 Cervical Cancer Screening: P ap Smear 08/24/1988 Zoster Vaccines (1 of 2) 08/24/2017 Breast Cancer Screening 04/05/2021 04/05/2019 Cholesterol Screening (Lipid Panel) 01/25/2022 Depression Screening 01/25/2022 HIV Screening 01/25/2022 Hepatitis C Screening 01/25/2022 Social Influencers of Health Screening 01/25/2022 COVID-19 Vaccine ( - 2023-2 5 season) 2023 Influenza Vaccine (Season Ended) 2024 Colorectal Cancer Screening: Colonoscopy 05/25/2028 05/26/2023, 11/23/2017 HIB Vaccines Aged Out No longer eligi [...] age to complete this topic Meningococcal B Vaccine Aged Out No l onger eligible based on patient's age to complete this topic RSV Immunization Patients Under 20 months Aged Out No longer eligible b ased on patient's age to complete this topic Varicella Vaccines Aged Out No longer eligible based on patient's age to complete this topic Procedures Procedure Name Priority Date/Time Associated Diagnosis Comments CT ABDOMEN PELVIS W CONTRAST Routine 05/19/2024 8:34 AM EDT LUQ pain AMYLASE Routine 05/05/2024 1:59 PM EDT LUQ pain LIPASE Routine 05/05/2024 1:59 PM EDT LUQ pain XR CHEST 2 VIEWS STAT 03/02/2024 4:40 PM EST Acute cough EXTERNAL COLONOSCOPY REPORT Routine 05/26/2023 11:01 AM EDT JARRED SCREENING DIGITAL Routine 04/05/2019 9:25 AM EST Encounter for screening mammogram for malignant neoplasm of breast from Last 3 Months or Most Recently Relevant to Health Maintenance Results * CT Abdomen Pelvis w Contrast (05/19/2024 8:34 AM EDT) Anatomical Region Laterality Modality Body Computed Tomogra phy 05/24/2024 9:21 AM EDT Impressions 05/24/2024 9:34 AM EDT 1. ??No findings to suggest an etiology for left upper quadrant pain. 2. ??Small low-attenuation liver lesion. ??This is probably a hemangioma but not definitively characterized on this study. ??It could be definitively characterized with multiphasic liver CT or MRI. -------- FINAL REPORT -------- Dictated By: Anirudh Greenberg Dictated Date: 05/24/2024 09:21 ET Assigned Physician: Anirudh Greenberg Reviewed and Electronically Signed By: Anirudh Greenberg Signed Date: 05/24/2024 09:34 ET Workstation ID: [id number] Transcribed By: Self Edit Transcribed Date: 05/24/2024 09:21 ET Narrative 05/24/2024 9:34 AM EDT PROCEDURE: Contrast enhanced CT of the abdomen and pelvis. ?? HISTORY: LUQ abdominal pain. COMPARISON: MRI of the pelvis 05/19/2023. TECHNIQUE: Contrast-enhanced CT of the abdomen and pelvis with coronal and sagittal reformats. IV contrast dose: 90 mL ISOVUE-370. Dose length product: ??931 mGy-cm. FINDINGS: Lung bases: Normal. Cardiac: Normal coronary artery calcification. Liver: Small area of focal fatty infiltration along the intersegmental fissure. ??11 mm diameter irregular low-attenuation lesion in the periphery of the right hepatic lobe. ??Small foci of peripheral enhancement. ??This is probably a hemangioma. ??Portal veins are patent. Biliary: Normal gallbladder and biliary tree. Pancreas: Normal. Spleen: Normal. Adrenal glands: Normal. Kidneys: Normal. ??Normal appearance of the ureters. Retroperitoneum: No mass or adenopathy. Abdominal vasculature: Minimal atherosclerotic calcification. Bowel/mesentery: No obstruction or adenopathy. ??No mass or ascites. Abdominal wall: Normal. Pelvic nodes: No adenopathy. Pelvic organs: Retroverted uterus with a heterogeneous myometrium, correlating with small fibroids noted on the comparison MRI. Bones: Degenerative changes of the spine, hips, SI joints, and pubic symphysis. Procedure Note Anirudh Greenberg MD - 05/24/2024 PROCEDURE: Contrast enhanced CT of the abdomen and pelvis. HISTORY: LUQ abdominal pain. COMPARISON: MRI of the pelvis 05/19/2023. TECHNIQUE: Contrast-enhanced CT of the abdomen and pelvis with coronal andsagittal reformats. IV contrast dose: 90 mL ISOVUE-370. Dose length product: 931 mGy-cm. FINDINGS: Lung bases: Normal. Cardiac: Normal coronary artery calcification. Liver: Small area of focal fatty infiltration along the intersegmentalfissure. 11 mm diameter irregular low-attenuation lesion in the peripheryof the right hepatic lobe. Small foci of peripheral enhancement. This isprobably a hemangioma. Portal veins are patent. Biliary: Normal gallbladder and biliary tree. Pancreas: Normal. Spleen: Normal. Adrenal glands: Normal. Kidneys: Normal. Normal appearance of the ureters. Retroperitoneum: No mass or adenopathy. Abdominal vasculature: Minimal atherosclerotic calcification. Bowel/mesentery: No obstruction or adenopathy. No mass or ascites. Abdominal wall: Normal. Pelvic nodes: No adenopathy. Pelvic organs: Retroverted uterus with a heterogeneous myometrium,correlating with small fibroids noted on the comparison MRI. Bones: Degenerative changes of the spine, hips, SI joints, and pubicsymphysis. IMPRESSION: 1. No findings to suggest an etiology for left upper quadrant pain. 2. Small low-attenuation liver lesion. This is probably a hemangioma butnot definitively characterized on this study. It could be definitivelycharacterized with multiphasic liver CT or MRI. -------- FINAL REPORT -------- Dictated By: Anirudh Greenberg Dictated Date: 05/24/2024 09:21 ET Assigned Physician: Anirudh Greenberg Reviewed and Electronically Signed By: Anirudh Greenberg Signed Date: 05/24/2024 09:34 ET Workstation ID: [id number] Transcribed By: Self Edit Transcribed Date: 05/24/2024 09:21 ET us Luis DEGROOT IMG CT PROCEDURES Final Resu lt * Lipase (05/05/2024 1:59 PM EDT) [facility] Lipase 27 13 - 75 unit/L LAB CHEMISTRY METHOD 05/05/2024 5:40 PM EDT [facility] Blood Venous blood specimen / Unknown Venipuncture / Unknown 05/05/2024 1:59 PM EDT 05/05/2024 4:39 PM EDT Luis DEGROOT LAB BLOOD ORDERABLES Final R esult Performing Organization Address City/[facility]/ZIP Co de Phone Number [facility] [address] [place] [address], [place] [phone] * Amylase (05/05/2024 1:59 PM EDT) [facility] Amylase 38 25 - 115 unit/L LAB CHEMISTRY METHOD 05/05/2024 5:40 PM EDT [facility] Blood Venous blood specimen / Unknown Venipuncture / Unknown 05/05/2024 1:59 PM EDT 05/05/2024 4:39 PM EDT Luis DEGROOT LAB BLOOD ORDERABLES Final R esult Performing Organization Address City/[facility]/ZIP Co de Phone Number [facility] [address] [place] [address], [place] [phone] * XR Chest 2 Views (03/02/2024 4:40 PM EST) Anatomical Region Laterality Modality Body Radiographic Marah ging 03/02/2024 6:31 PM EST Impressions 03/02/2024 6:35 PM EST No evidence of an acute chest process. POS - [id number] -------- FINAL REPORT -------- Dictated By: Lauren Green Dictated Date: 03/02/2024 18:31 ET Assigned Physician: Lauren Green Reviewed and Electronically Signed By: Lauren Green Signed Date: 03/02/2024 18:35 ET Workstation ID: [id number] Transcribed By: Self Edit Transcribed Date: 03/02/2024 [...] of an acute chest process. POS - [id number] -------- FINAL REPORT -------- Dictated By: Lauren Green Dictated Date: 03/02/2024 18:31 ET Assigned Physician: Lauren Green Reviewed and Electronically Signed By: Lauren Green Signed Date: 03/02/2024 18:35 ET Workstation ID: [id number] Transcribed By: Self Edit Transcribed Date: 03/02/2024 18:31 ET Durga Stanley NP IMG XR PROCEDURES Final Resul t * External Colonoscopy Report (05/26/2023 11:01 AM EDT) Anatomical Region Laterality Modality Endoscopy us Historical Provider MD GAMBLE~PROCEDURE ORDERABLES F inal Result * JARRED SCREENING DIGITAL (04/05/2019 9:25 AM EST) Anatomical Region Laterality Modality Mammography 04/05/2019 8:41 AM EST Narrative 04/05/2019 9:25 AM EST [facility] Diagnostic Imaging Department [address] [place] [address] Patient: ??CA DELANEY ?/Age/Sex: 1965 - 53 - F Unit#: ??[id number] ? Location/Status: ??SPDIMAM/REG CLI ? Mnemonic/Ordering Site: ??DIGSC/SPMAM Ordering Physician: ??MAZIN BULLOCK MD Jarred Screening Digital - 04/05/1956 History: Bilateral breast cancer screening. Technique: Digital mammography. Conventional CC and MLO projections with tomosynthesis MLO views and computer aided detection. Comparison: [facility] and outside mammography 01/04/2018, dating back to 11/17/2007. Findings: ??Breast tissue consists of a combination of fatty and fibroglandular elements (category b density) (as calculated by [employer] software). There are benign calcifications bilaterally. ??No suspicious group of calcification, architectural distortion, suspicious mass or suspicious asymmetry. Impression: ??No evidence of malignancy. BIRADS Category 2, benign findings, 3342F [address]85[address], [address] Note: Patient information entered into a reminder system with a target due date for the next mammogram: ??CPT II 7025F Dictating Physician: ??HARIS BUCHANAN MD Electronically Signed by: ??HARIS BUCHANAN MD Dic Date/Time: ??04/05/19923 Sign date/Time: ??04/05/19924 Procedure Note Haris Buchanan - 02/11/2022 [facility] Diagnostic Imaging Department [address] [place] [address] Patient: CA DELANEY./Age/Sex: 1965 - 53 - F Unit#: [id number] Location/Status: [facility] Mnemonic/Ordering Site: [facility] Ordering Physician: MAZIN BULLOKC MD Jarred Screening Digital - 04/05/19857 History: Bilateral breast cancer screening. Technique: Digital mammography. Conventional CC and MLO projections with tomosynthesis MLO views and computer aided detection. Comparison: [facility] and outside mammography 01/04/2018,dating back to 11/17/2007. Findings: Breast tissue consists of a combination of fatty andfibroglandular elements (category b density) (as calculated by [employer] software).There are benign calcifications bilaterally. No suspicious group ofcalcification, architectural distortion, suspicious mass or suspicious asymmetry. Impression: No evidence of malignancy. BIRADS Category 2, benign findings, 3342F [address], [address] Note: Patient information entered into a reminder system with a target duedate for the next mammogram: CPT II 7025F Dictating Physician: HARIS BUCHANAN MD Electronically Signed by: HARIS BUCHANAN MD Dic Date/Time: 04/05/19923 Sign date/Time: 04/05/19924 Mazin Bullock MD IMG BI PROCEDURES Final Resu lt from Last 3 Months or Most Recently Relevant to Health Maintenance [address] [place] [id number] [facility] Care Teams Chief Drafter Relationship Specialty Start Date End Date Danuta Contreras NP [facility] [place] [address] PCP - General 07/17/22
--- OUTSIDE RECORDS SUMMARY | 2024-05-30 08:21 | XMS_ITS | Clinical Summary ---
Author Organization [facility] Address [address] [place] [address] Phone Care Team Providers Care Good Humor Vendor Name Role Phone Jose Kwan MD Primary Care Provid er Valente Cole MD [facility] [phone] Allergies Active Allergy Reactions Criticality Noted Date Comments Penicillins 11/26/2021 Medications No known medications Active Problems No known active problems Family History Medical History Relation Comments Breast cancer Maternal Aunt Uterine cancer Maternal Aunt Oral cancer Maternal Grandfather Neoplasm of thymus Mother Relation Status Comments Maternal Aunt Maternal Grandfather Mother Social History Tobacco Use Types Packs/Day Years Used Date Smoking Tobacco: Never Smokeless Tobacco: Never Alcohol Use Standard Drinks/Week Comments Yes 0 (1 standard drink = 0.6 oz pur e alcohol) social Education Answer Date Recorded Are you interested in more education? Not on savi e 06/20/2022 Are you concerned about learning? Not on file 06/20/2022 No 06/20/2022 No 06/20/2022 Digital Access Answer Date Recorded No 07/19/2022 No 07/19/2022 No 07/19/2022 Reliable internet access at home? Not on file 07/19/2022 Device with a working camera? Not on file Sex and Gender Information Value Date Recorded Sex Assigned at Female 01/22/2021 10:54 AM EST Gender Identity Female 01/22/2021 10:54 AM EST Sexual Orientation Straight 01/22/2021 10 :54 AM EST Last Filed Vital Signs Vital Sign Reading Time Taken Comments Blood Pressure 145/86 11/26/2021 11:34 AM EDT Pulse 75 11/26/2021 11:34 AM EDT Temperature 36.4 ??C (97.5 ??F) 11/26/2021 11:34 AM E DT Respiratory Rate 18 11/26/2021 11:34 AM EDT Oxygen Saturation 99% 11/26/2021 11:34 AM EDT Inhaled Oxygen Concentration - - Weight 81.6 kg (180 lb) 11/26/2021 11:34 AM EDT Height 165.1 cm (5' 5 ) 11/26/2021 11:34 AM EDT Body Mass Index 29.95 11/26/2021 11:34 AM EDT Plan of Treatment Health Maintenance Due Date Last Done Comments Adult Td,Tdap Booster 1965 LIPID PANEL 1965 DEPRESSION SCREENING 1979 HEPATITIS C SCREENING 08/24/1985 HIV ONE-TIME SCREENING (18-6 5 YEARS) 08/24/1985 PAP SMEAR 08/24/1988 SCREENING FOR DIABETES 08/24/2002 MAMMOGRAM 2007 COLOGUARD 08/24/2012 COLONOSCOPY 08/24/2012 COLORECTAL CANCER SCREENING 08/24/2012 FIT TEST 08/24/2012 FOBT 08/24/2012 SIGMOIDOSCOPY 08/24/2012 VIRTUAL COLONOSCOPY 08/24/2012 PNEUMOCOCCAL VACCINES (50+ y ears) (1 of 1 - PCV) 08/24/2017 ZOSTER VACCINES (1 of 2) 08/24/2017 INFLUENZA VACCINE (#1) 2023 COVID-19 VACCINE ( - 2023-2 5 season) 2023 SMOKING STATUS SCREENING (On ce After 26 Yrs) Completed 11/26/2021 HEPATITIS A VACCINES Aged Out No long er eligible based on patient's age to complete this topic HIB VACCINES Aged Out No longer eligi ble based on patient's age to complete this topic MENINGOCOCCAL VACCINES (ACWY) Aged Out No longer eligible based on patient's age to complete this topic Medical Devices Not on file Care Teams Good Humor Vendor Relationship Specialty Start Date End Date Jose Kwan MD [address] [place] [address] PCP - General Internal Medicine 01/22/21 Valente Cole MD [address] [place] [address] [email or web address] General Surgery 11/20/21 Additional Source Comments The information contained in this document represents components of the legal health record. It is not the complete legal health record.[facility]
--- OUTSIDE RECORDS SUMMARY | 2024-05-30 08:21 | XMS_ITS ---
Author Organization [facility] Address [address] [place] [address] Care Team Providers Care Supervisor Insecticide Name Role Phone ADRIENNE SINGLETON Unavailable [phone] REASON FOR VISIT abdominal US results Encounters Encounter Location Date Provider Diagnosis [address] [facility] [address] [place] [address] 05/01/2024 ADRIENNE SINGLETON PLAN OF TREATMENT Next Appt Details Provider Name:ADRIENNE SINGLETON, 06/02/2024 09:00:00 AM, [address], [address], [place], [address], Progress Notes * Dalton CAPUTOOB:[birth year] (58 yo F)Acc No.[id number]:05/01/2024 Patient:??HARSHALCa :1965?Age:58 Y?Sex:Fe male Address:[address] [place] [address] * true * Date:??
--- OUTSIDE RECORDS SUMMARY | 2024-05-30 08:21 | XMS_ITS ---
Author Organization [facility] Address [address] [place] [address] Care Team Providers Care Industrial Psychologist Name Role Phone ADRIENNE SINGLETON Unavailable [phone] Encounters Encounter Location Date Provider Diagnosis [facility] [address] [place] [address] 05/03/2024 ADRIENNE SINGLETON PLAN OF TREATMENT Next Appt Details Provider Name:ADRIENNE SINGLETON, 06/02/2024 09:00:00 AM, [address] [place] [address] [address], [place], [address], Progress Notes * Dalton CAPUTOOB:[birth year] (58 yo F)Acc No.[id number]:05/03/2024 Patient:??HARSHALCa :1965?Age:58 Y?Sex:Fe male Address:[address] [place] [address] [place] [address] * true * Date:??
--- OUTSIDE RECORDS SUMMARY | 2024-05-30 08:21 | XMS_ITS | Encounter Summary ---
Author Organization [facility] Address [address] [place] [address] Care Team Providers Care Business Banker Name Role Phone Danuta Contreras NP Primary Care Provider [phone] Encounter Details Date Type Department Care Team (Late st Contact Info) Description 05/26/2024 Telephone Gastroenterology - [address] [place] [address] Maxine Graham MA Social History Tobacco Use Types Packs/Day Years [...] as of this encounter Progress Notes * Maxine Graham MA - 05/26/2024 8:23 AM EDT Spoke with pt per ML CT did not see any cause for left upper abdomen pain. It did see a liver lesion. It looks like a benign hemangioma (collection of blood vessels) which is a common finding in the liver. The radiologist recommends further testing (abdominal MRI) to confirm diagnosis. Order [facility] at [facility] * Maxine Graham MA - 05/26/2024 8:23 AM EDT ----- Message from MIKAYLA Romo sent at 05/25/2024 5:48 PM EDT ----- Please let pt know that the CT did not see any cause for left upper abdomen pain. It did see a liver lesion. It looks like a benign hemangioma (collection of blood vessels) which is a common finding in the liver. The radiologist recommends further testing (abdominal MRI) to confirm diagnosis. I will place order for MRI.TY documented in this encounter Plan of Treatment Upcoming Encounters Date Type Department Care Team (Late st Contact Info) Description 07/05/2024 9:10 AM EDT Office Visit Gastroenterology - [address] [place] [address] [address] [place] [address] Luis Hare PA [address] [facility] [address] [facility] [address] [place] [address] documented as of this encounter Visit Diagnoses Not on filedocumented in this encounter Care Teams Business Banker Relationship Specialty Start Date End Date Danuta Contreras NP [address] [place] [address] PCP - General 07/17/22 documented as of this encounter
--- OUTSIDE RECORDS SUMMARY | 2024-05-30 08:21 | XMS_ITS | Patient Health Record ---
Author Organization [facility] Address [address] [place] [address] Care Team Providers Care Acid Bath Mixer Name Role Phone ADRIENNE SINGLETON Unavailable [phone] ALLERGIES No Known Allergies REASON FOR REFERRAL [...] Vitamin D deficiency, unspecified (E55.9) Active confirmed 84362048 Problem Functional urinary incontinence (R39.81) Active confirmed 083488732 Problem Dyslipidemia (E78.5) Active confirmed 741629351 VITAL SIGNS Heart Rate 68 /min 04/28/2024 Oximetry 97 % 04/28/2024 Blood pressure diastolic 84 mm Hg 04/28/2024 Height 64 in 04/28/2024 Blood pressure systolic 120 mm Hg 04/28/2024 Weight 170 lbs 04/28/2024 BMI 29.18 kg/m2 04/28/2024 Encounters Encounter Location Date Provider Diagnosis [facility] [address] [address] 04/28/2024 ADRIENNE BORFATMATA Dyslipidemia E78.5 ; Left upper quadrant pain R10.12 ; Functional urinary incontinence R39.81 ; H/O pilonidal cyst Z87.2 ; Coccygeal pain M53.3 ; Uterine leiomyoma, unspecified location D25.9 ; Acute pain of left knee M25.562 and Vitamin D deficiency, unspecified E55.[address] [facility] [address] [facility] [address] [place] [address] 05/29/2024 [facility] [address] [facility] [address] [place] [address] 04/27/2024 [facility] [address] [facility] [address] [facility] [address] [place] [address] 05/01/2024 ADRIENNE BORFORMERLY [facility] [address] [place] [address] 05/03/2024 ADRIENNE BORTHE [facility] Encounter Date Diagnosis Assessment Notes Treatment [...] software and direct typing Please excuse inadvertent call or contact centre coach or typing errors, or uncorrected word substitutions Although every attempt has been made by the provider to proofread this document, occasional misspellings and typographical errors may still be present Due to the previous pandemic, and the use of personal protective equipment (PPE) This may decrease voice recognition accuracy Inadvertent call or contact centre coach errors may occur 04/28/2024 Dyslipidemia (ICD-10 - [...] software and direct typing Please excuse inadvertent call or contact centre coach or typing errors, or uncorrected word substitutions Although every attempt has been made by the provider to proofread this document, occasional misspellings and typographical errors may still be present Due to the previous pandemic, and the use of personal protective equipment (PPE) This may decrease voice recognition accuracy Inadvertent call or contact centre coach errors may occur 04/28/2024 Functional urinary incontinence [...] software and direct typing Please excuse inadvertent call or contact centre coach or typing errors, or uncorrected word substitutions Although every attempt has been made by the provider to proofread this document, occasional misspellings and typographical errors may still be present Due to the previous pandemic, and the use of personal protective equipment (PPE) This may decrease voice recognition accuracy Inadvertent call or contact centre coach errors may occur 04/28/2024 H/O pilonidal cyst [...] software and direct typing Please excuse inadvertent call or contact centre coach or typing errors, or uncorrected word substitutions Although every attempt has been made by the provider to proofread this document, occasional misspellings and typographical errors may still be present Due to the previous pandemic, and the use of personal protective equipment (PPE) This may decrease voice recognition accuracy Inadvertent call or contact centre coach errors may occur 04/28/2024 Coccygeal pain (ICD-10 [...] software and direct typing Please excuse inadvertent call or contact centre coach or typing errors, or uncorrected word substitutions Although every attempt has been made by the provider to proofread this document, occasional misspellings and typographical errors may still be present Due to the previous pandemic, and the use of personal protective equipment (PPE) This may decrease voice recognition accuracy Inadvertent call or contact centre coach errors may occur 04/28/2024 Uterine leiomyoma, unspecified [...] software and direct typing Please excuse inadvertent call or contact centre coach or typing errors, or uncorrected word substitutions Although every attempt has been made by the provider to proofread this document, occasional misspellings and typographical errors may still be present Due to the previous pandemic, and the use of personal protective equipment (PPE) This may decrease voice recognition accuracy Inadvertent call or contact centre coach errors may occur 04/28/2024 Acute pain of [...] software and direct typing Please excuse inadvertent call or contact centre coach or typing errors, or uncorrected word substitutions Although every attempt has been made by the provider to proofread this document, occasional misspellings and typographical errors may still be present Due to the previous pandemic, and the use of personal protective equipment (PPE) This may decrease voice recognition accuracy Inadvertent call or contact centre coach errors may occur 04/28/2024 Vitamin D deficiency, [...] software and direct typing Please excuse inadvertent call or contact centre coach or typing errors, or uncorrected word substitutions Although every attempt has been made by the provider to proofread this document, occasional misspellings and typographical errors may still be present Due to the previous pandemic, and the use of personal protective equipment (PPE) This may decrease voice recognition accuracy Inadvertent call or contact centre coach errors may occur PLAN OF TREATMENT Pending Test Test Name Order Date X ray : Knee, left 2 views 04/28/2024 US Abdomen Complete 04/28/2024 LIPID PANEL, STANDARD 04/28/2024 COMPREHENSIVE METABOLIC PANEL 04/28/2024 CBC (INCLUDES DIFF/PLT) 04/28/2024 URINALYSIS, COMPLETE 04/28/2024 HEMOGLOBIN A1c 04/28/2024 LIPASE 04/28/2024 AMYLASE 04/28/2024 TSH 04/28/2024 Next Appt Details Provider Name:ADRIENNE SINGLETON, 06/02/2024 09:00:00 AM, [address] [facility], [facility] [address], [place], [address], Insurance Providers Payer Name Payer Address Payer Phone Subscriber Number Group Number Insured Name Patient Relationship to Insured Coverage Start Date Coverage End Date [facility] [address] [place] [address] [phone] [id number] Ca Delaney Self - patient is the insured MEDICAL (GENERAL) HISTORY Medical History History ICD Code hypertension hypercholesterolemia Surgical History Surgery Date(Month/Year) breast reduction cyst removal
[2024-05-30 10:05] LABS: Appearance Urine Turbid; Color Urine Yellow; Glucose Urine UA Negative (Negative); Leukocyte Esterase Urine Moderate (2+) (Negative); Nitrite Urine Negative (Negative); PH 5.5 (5.0-9.0); Specific Gravity - Urine 1.025 (1.005-1.025); Urine Blood Negative (Negative); Urine Ketones Trace mg/dL (Negative); Urine Protein Negative (Neg-Trace)
[2024-05-30 10:06] LABS: UMIC TRIGGER UACC YES
[2024-05-30 10:21] LABS: Bacteria Urine 4+ (None Seen); Calcium Oxalate Crystals Urine Present; RBC Urine 0-2 /HPF (0-2); UACC Culture Trigger YES; WBC Urine 21-50 /HPF (0-5)
[2024-05-30 10:32] LABS: Alanine Aminotransferase 31 U/L (0-31); Albumin Level 4.3 g/dL (3.5-5.0); Alkaline Phosphatase 71 U/L (39-117); Anion Gap 11 (12-20); Aspartate Amino Transferase 25 U/L (5-31); Bilirubin Total 0.8 mg/dL (0.0-1.0); Blood Urea Nitrogen 17 mg/dL (9-16); Calcium 9.5 mg/dL (8.4-10.2); Carbon Dioxide 27 mmol/L (22-29); Chloride 107 mmol/L (96-108); Cholesterol 234 mg/dL (<200); Estimated Glomerular Filt Rate > 60; Glucose Random 96 mg/dL (60-115); HDL Cholesterol 59 mg/dL (>40); LDL Cholesterol Calculated 139 mg/dL (<100); Potassium 3.9 mmol/L (3.3-5.1); Sodium 141 mmol/L (135-145); Total Protein 7.1 g/dL (6.5-8.0); Triglycerides 180 mg/dL (<150)
[2024-05-30 10:50] LABS: Thyroid Stimulating Hormone 3.57 uIU/mL (0.32-4.0)
[2024-05-30 10:52] LABS: Estimated Average Glucose 100 mg/dL; Hemoglobin A1C 118.2402 umol/L; Hemoglobin A1c % 5.1 % (<6.0); Total Hemoglobin (HGBA1C) 3712.6405 umol/L
== END 2024-05-30 08:08 | disposition home or self-care (01) ==
LOC: HO.10HDL 08:07
PROVIDERS: Visit Provider Nurse Practitioner Acute Care
DX: Z00.00 Encounter for general adult medical examination without abnormal findings (principal); Z13.6 Encounter for screening for cardiovascular disorders; Z13.1 Encounter for screening for diabetes mellitus; R10.12 Left upper quadrant pain; Z13.29 Encounter for screening for other suspected endocrine disorder
CPT/HCPCS: 36415; 80053; 80061; 81001; 83036; 84443; 87086